=== PATIENT | male | born 1940 | race Caucasian/White ===

== ENCOUNTER 2017-10-27 16:20 | Emergency (ER) | payer OTHER ==
[~2017-10-27] VITALS: Ht 177.8 cm; Wt 123.4 kg
[~2017-10-27 16:20] MED LIST: ASPIRIN EC81 MG PO; B-121000 MCG PO; CALCIUM600 MG PO; CENTRUM; CENTRUM SILVER PO; GLYBURIDE-METF1 EAC1 PO; LANTUS100 UNIT/1 SC; LISINOPRIL10 MG PO; SIMVASTATIN40 MG PO; VITAMIN D PO; ZINC50 M1 PO
[2017-10-27] MEDS ORDERED: SODIUM CHLORIDE 0.9% 1000ML 1,000 ML IV STA (16:22)
[2017-10-27] MEDS ORDERED: ONDANSETRON HCL INJ 2 MG/ML VIAL IV STA (16:22)
[2017-10-27 17:12] LABS: BILIRUBIN,URINE NEGATIVE (NEGATIVE); COLOR,URINE YELLOW (YELLOW); KETONES,URINE 3+ (NEGATIVE); LEUKOCYTE ESTERASE ,URINE TRACE (NEGATIVE); NITRITE,URINE NEGATIVE (NEGATIVE); URINE UROBILINOGEN 0.2 mg/dL (0.2 - 1)
[2017-10-27 17:16] LABS: CLARITY,URINE SL CLOUDY (CLEAR); PROTEIN,URINE DIPSTICK 1+ (NEGATIVE)
[2017-10-27] MEDS ORDERED: DIATRIZOATE MEGL/DIATRIZOA SOD 30 ML BTL PO ONE (17:20)
[2017-10-27 17:34] LABS: BACTERIA,URINE MODERATE /HPF; EPITHELIAL CELLS,URINE RARE /LPF
[2017-10-27] MEDS ORDERED: SODIUM CHLORIDE 0.9% 1000ML 1,000 ML ONE (19:26)
[2017-10-27 20:26] LABS: BASOPHILS % 0.2 % (0.0-1.0); HEMATOCRIT 44.8 % (38.2-49.6); HEMOGLOBIN 13.7 g/dL (14.0-18.0); LYMPHOCYTES # (AUTO) 0.4 (1.0-3.2); MEAN CORPUSCULAR HEMOGLOBIN 25.4 pg (28-32); MEAN CORPUSCULAR HGB CONC 30.6 g/dL (31-35); MEAN CORPUSCULAR VOLUME 83.1 fL (81-99); MONOCYTES # (AUTO) 0.5 (0.2-0.8); MONOCYTES % 4.4 % (4.4-11.3); NEUTROPHILS # (AUTO) 10.7 (2.1-6.9); PLATELET COUNT 178 x10e3/uL (140-360); RED BLOOD COUNT 5.39 x10e6/uL (4.3-5.7); RED CELL DISTRIBUTION WIDTH 16.2 % (11.7-14.4)
[2017-10-27 20:35] LABS: INR 1.09; PROTHROMBIN TIME 13.3 seconds (11.9-14.5)
[2017-10-27 20:36] LABS: PARTIAL THROMBOPLASTIN TIME 26.4 seconds (23.8-35.5)
[2017-10-27 20:47] LABS: B-TYPE NATRIURETIC PEPTIDE2 27.4 pg/mL (0-100)
[2017-10-27 20:48] LABS: ALBUMIN/GLOBULIN RATIO 1.2 (0.8-2.0); ANION GAP 18.6 mmol/L (8-16); CREATININE, SERUM 1.31 mg/dL (0.72-1.25); MAGNESIUM 1.7 MG/DL (1.3-2.1); POTASSIUM 4.6 mmol/L (3.5-5.1)
[2017-10-27 20:55] LABS: CREATINE KINASE MB 2.2 ng/mL (0-5.0)
--- NOTE | 2017-10-27 21:48 | Diagnostic Imaging Report ---
EXAM: CT ABDOMEN/PELVIS W DATE: 10/27/2017 5:00 PM INDICATION: Nausea, small bowel obstruction COMPARISON: None TECHNIQUE: The abdomen and pelvis were scanned using a multidetector helical scanner. Coronal and sagittal reformations were obtained. Routine protocol performed. IV Contrast: 100 ml Isovue 370 FINDINGS: LOWER THORAX: Groundglass, linear and nodular right middle lobe opacity, nonspecific but may be postinfectious. LIVER/BILIARY: No masses. No ductal dilatation. GALLBLADDER: Cholelithiasis. SPLEEN: Incidental splenic calcified granulomas. PANCREAS: Several pancreatic calcifications which can be seen with chronic pancreatitis. Otherwise unremarkable. ADRENALS: Low-density 1.9 cm left adrenal nodule most compatible with an adenoma (HU6). KIDNEYS: Multiple bilateral renal cysts, the largest 9.5 cm of the right inferior pole, and 10.4 cm of the left interpolar region GI TRACT: No wall thickening or evidence of obstruction. VESSELS: Left external iliac vein is diminutive with calcification of the visualized OIL DISPENSER/SFA, likely related to prior/chronic thrombosis. PERITONEUM/RETROPERITONEUM: No free air or fluid LYMPH NODES: No lymphadenopathy REPRODUCTIVE ORGANS/BLADDER: Prostatomegaly. Bladder diverticula most subtle curvilinear enhancement or high density along a right posterior diverticula on image 79. SOFT TISSUES: Unremarkable BONES: Multilevel degenerative changes IMPRESSION: 1. No acute abnormality. Specifically no evidence of small bowel obstruction. 2. 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 Subtle peripheral high density or enhancement along a right posterior diverticulum lateral to the UVJ; correlate with direct visualization and urine cytology to exclude neoplasm. Signed by: Dr Tali Alvarez MD on 10/27/2017 9:44 PM
--- NOTE | 2017-10-27 21:49 | Diagnostic Imaging Report ---
CHEST SINGLE (PORTABLE), 10/27/2017 4:22 PM Technique: CHEST SINGLE (PORTABLE) Comparison: None available. Clinical history: Sinus congestion, vomiting Findings: See Impression Impression: 1. Normal cardiac silhouette for technique. Prominent bilateral nohemy which could reflect pulmonary vasculature or adenopathy. Recommend upright PA and lateral to better evaluate. 2. No consolidation or edema. Right middle lobe opacity better seen on CT. Signed by: Dr Tali Alvarez MD on 10/27/2017 9:45 PM
[2017-10-27] MEDS ORDERED: SODIUM CHLORIDE 0.9% 50ML 50 ML ONE (22:24)
[2017-10-27] MEDS ORDERED: IOPAMIDOL 370 MG/ML 200 ML INFUS..BTL INJ ONE (22:25)
[2017-10-27] MEDS ORDERED: CEFTRIAXONE SOD 1 GM VIAL IV ONE (22:30)
[2017-10-27 22:46] VITALS: BP 159/85
== END 2017-10-27 22:57 | disposition home or self-care (01) ==
LOC: ER 16:20
DX: N30.91 Cystitis, unspecified with hematuria (principal); N32.3 Diverticulum of bladder; R11.2 Nausea with vomiting, unspecified; R10.84 Generalized abdominal pain
CPT/HCPCS: 36415; 71045; 74177; 80053; 81001; 82550; 82553; 82948; 83605; 83690; 83735; 83880; 84484; 85025; 85610; 85730; 87086; 87400; 93005; 99284; J0696; J7030; Q9967

== ENCOUNTER → 2017-12-10 | Day surgery (SDC) | payer OTHER ==
[2017-12-08 10:21] LABS: BASOPHILS % 0.5 % (0.0-1.0); EOSINOPHILS # (AUTO) 0.3 (0.0-0.4); EOSINOPHILS % 3.3 % (0.0-6.0); HEMATOCRIT 42.6 % (38.2-49.6); LYMPHOCYTES # (AUTO) 1.5 (1.0-3.2); LYMPHOCYTES % 19.7 % (18.0-39.1); MEAN CORPUSCULAR HGB CONC 30.5 g/dL (31-35); MEAN CORPUSCULAR VOLUME 81.8 fL (81-99); MONOCYTES # (AUTO) 0.7 (0.2-0.8); MONOCYTES % 9.6 % (4.4-11.3); NEUTROPHILS % 66.6 % (38.7-80.0); PLATELET COUNT 191 x10e3/uL (140-360); RED BLOOD COUNT 5.21 x10e6/uL (4.3-5.7); RED CELL DISTRIBUTION WIDTH 15.9 % (11.7-14.4)
[2017-12-08 10:45] LABS: ANION GAP 14.3 mmol/L (8-16); CALCIUM 9.5 mg/dL (8.4-10.2); CREATININE, SERUM 1.3 mg/dL (0.72-1.25); POTASSIUM 5.3 mmol/L (3.5-5.1)
--- NOTE | 2017-12-08 10:50 | Diagnostic Imaging Report ---
PROCEDURE:CHEST 2 VIEWS TECHNIQUE:PA and lateral chest INDICATION:Preoperative evaluation COMPARISON:Patients [facility], DX, CHEST SINGLE (PORTABLE), 10/27/2017, 20:24. FINDINGS: Bilateral interstitial scar. No focal airspace disease. No pleural effusions. Normal cardiac mediastinal silhouette for technique and age. Intact skeleton. CONCLUSION: No acute abnormality. Dictated by: Delmer Hernandez M.D. on 12/08/2017 at 10:52 Electronically approved by: Delmer Hernandez M.D. on 12/08/2017 at 10:52
[~2017-12-10] MED LIST changes: +ACETAMINOPHEN 1000 MG/100 ML IV ONE; +BELLADONNA/OPIUM 60 MG SUPP PR ONE; +CEFTRIAXONE SOD 1 GM VIAL ONE; +DEXAMETHASONE SOD PHOS INJ 4 MG/ML VIAL ONE; +IOPAMIDOL 610MG/1ML 300 MG/ML VIAL IV ONE; +IRON PO; +KETOROLAC TROMETHAMINE 30 MG/ML VIAL ONE; +LEVEMIR100 UNIT/1 SQ; +LISINOPRIL40 MG PO; +MULTIVITAMINS1 EAC7 PO; +ONDANSETRON HCL INJ 2 MG/ML VIAL ONE; +PROPOFOL IV EMULSION 10 MG/ML 20 ML VIAL ONE; +SEVOFLURANE INHAL SOLN 250 ML PEN BTL ONE
--- OUTSIDE RECORDS SUMMARY | 2017-12-10 05:28 | XMS REPORT ---
Author Author [facility] Address Unknown Phone Unavailable Care Team Providers Care Sales Engineer Name Role Phone BOUCHRA KUMARI Unavailable Unavailable CHARLEE KOO Unavailable Unavailable Problems This patient has no known problems. Allergies, Adverse Reactions, Alerts This patient has no known allergies or adverse reactions. Medications This patient has no known medications. Results Test Description Test Time Test Comments Text Results Atomic Results Result Comments CHEST 2 VIEWS [place] [address] Patient Name: ARTHUR BENZ MR #: [id number] : 1940 Age/Sex: 77/M Req #: [id number] [facility] Physician: Ordered by: BOUCHRA KUMARI MD Report #: [id number] Location: OR Room/Bed: Procedure: [id number] DX/CHEST 2 VIEWS Exam Date: 12/08/17 Exam Time: 1000 REPORT STATUS: Signed PROCEDURE: CHEST 2 VIEWS TECHNIQUE: PA and lateral chest INDICATION: Preoperative evaluation COMPARISON: [facility], , CHEST SINGLE (PORTABLE), 10/27/2017, 20:24. FINDINGS: Bilateral interstitial scar. No focal airspace disease. No pleural effusions. Normal cardiac mediastinal silhouette for technique and age. Intact skeleton. CONCLUSION: No acute abnormality. Dictated by: Jerrica Hernandez M.D. on 12/08/2017 at 10:52 Electronically approved by: Jerrica Hernandez M.D. on 12/08/2017 at 10:52 Dictated By: JERRICA HERNANDEZ MD 105 Transcribed By: AVRIL on 12/08/17 105 COPY TO: BOUCHRA KUMARI MD CT ABDOMEN/PELVIS W [place] [address] Patient Name: ARTHUR BENZ MR #: [id number] : 1940 Age/Sex: 77/M Req #: [id number] Adm Physician: Ordered by: ISHAAN MADSEN PIE MAKER MACHINE Report #: [id number] Location: ER Room/Bed: Procedure: [id number] CT/CT ABDOMEN/PELVIS W Exam Date: 10/27/17 Exam Time: 2049 REPORT STATUS: Signed EXAM: CT ABDOMEN/ PELVIS W DATE: 10/27/2017 5:00 PM INDICATION: Nausea, small bowel obstruction COMPARISON: None TECHNIQUE: The abdomen and pelvis were scanned using a multidetector helical scanner. Coronal and sagittal reformations were obtained. Routine protocol performed. IV Contrast: 100 ml Isovue 370 FINDINGS: LOWER THORAX: Groundglass, linear and nodular right middle lobe opacity, nonspecific but may be postinfectious. LIVER/BILIARY : No masses. No ductal dilatation. GALLBLADDER: Cholelithiasis. SPLEEN : Incidental splenic calcified granulomas. PANCREAS: Several pancreatic calcifications which can be seen with chronic pancreatitis. Otherwise unremarkable. ADRENALS: Low-density 1.9 cm left adrenal nodule most compatible with an adenoma (HU6). KIDNEYS: Multiple bilateral renal cysts, the largest 9.5 cm of the right inferior pole, and 10.4 cm of the left interpolar region GI TRACT: No wall thickening or evidence of obstruction. VESSELS: Left external iliac vein is diminutive with calcification of the visualized MEDICAL TECHNICIAN ASSISTANT/SFA, likely related to prior/chronic thrombosis. PERITONEUM/RETROPERITONEUM: No free air or fluid LYMPH NODES: No lymphadenopathy REPRODUCTIVE ORGANS/BLADDER: Prostatomegaly. Bladder diverticula most subtle curvilinear enhancement or high density along a right posterior diverticula on image 79. SOFT TISSUES: Unremarkable BONES: Multilevel degenerative changes IMPRESSION: 1. No acute abnormality. Specifically no evidence of small bowel obstruction. 2. 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 Subtle peripheral high density or enhancement along a right posterior diverticulum lateral to the UVJ; correlate with direct visualization and urine cytology to exclude neoplasm. Signed by: Dr Bethany Alvarez MD on 10/27/2017 9:44 PM Dictated By: BETHANY ALVAREZ MD 43 Transcribed By: AMAN on 10/27/172143 COPY TO: ISHAAN MADSEN NP CHEST SINGLE (PORTABLE) [place] [address] Patient Name: ARTHUR BENZ MR #: [id number] : 1940 Age/Sex: 77/M Req #: [id number] Adm Physician: Ordered by: ISHAAN MADSEN NP Report #: [id number] Location: ER Room/Bed: Procedure: [id number] DX/CHEST SINGLE (PORTABLE) Exam Date: 10/27/17 Exam Time: 2019 REPORT STATUS: Signed CHEST SINGLE ( PORTABLE), 10/27/2017 4:22 PM Technique: CHEST SINGLE (PORTABLE) Comparison: None available. Clinical history: Sinus congestion, vomiting Findings: See Impression Impression: 1. Normal cardiac silhouette for technique. Prominent bilateral nohemy which could reflect pulmonary vasculature or adenopathy. Recommend upright PA and lateral to better evaluate. 2. No consolidation or edema. Right middle lobe opacity better seen on CT. Signed by: Dr Bethany Alvarez MD on 10/27/2017 9:45 PM Dictated By: BETHANY ALVAREZ MD 44 Transcribed By: AMAN on 10/27/172144 COPY TO: ISHAAN MADSEN NP
--- OUTSIDE RECORDS SUMMARY | 2017-12-10 05:28 | XMS REPORT | Continuity of Care Document ---
Author Author [facility] Organization [facility] Address [address] [place] [address] Phone Unavailable Care Team Providers Care Farrowing Worker Name Role Phone TOD LIMON MD PCP Insurance Providers Guarantor Rey Benz Address [address] [place] [address] Email Payer [facility] Policy Number [id number] Subscriber's Name Rey Benz Relationship 18 Self / Same As Patient Group Number [id number] Group Name [employer] - Medicare Advantage Divis Effective Date 17 Advance Directives Directive Response Recorded Date/Time Does the patient have an advance directive? No 03/11/13 10:57am If yes, is advance directive on file with [facility]? No 03/11/13 10:57am If not on file with [facility] will patient provide a copy? No 03/11/13 10:57am Do you have a Directive to Physician? No 10/27/17 5:25pm Do you have a Medical Power of Rn Training? No 10/27/17 5:25pm Do you have an out of hospital Do Not Resuscitate Order? No 10/27/17 5:25pm Do you have any special needs we should be aware of? NN 10/27/17 5:25pm Do you have a support person here with you today? Yes 10/27/17 5:25pm Did patient receive Notice of Privacy Practices? Yes 10/27/17 5:25pm Did patient receive patient rights and responsibilities? Yes 10/27/17 5:25pm Problems No problem information available. Medications Current Home Medications Medication Dose Units Route Directions Days Qty Instructions Start Date Aspirin (Aspirin Ec) 81 Mg Tablet.dr 81 Mg Oral Daily Calcium Carbonate (Calcium) 600 Mg Tablet 600 Mg Oral Daily Centrum Centrum Silver Oral Daily Cyanocobalamin (Vitamin B-12) (B-12) 1,000 Mcg Tablet.er 1,000 Oral Daily Glyburide/Metformin Hcl (Glyburide-Metformin 5-500 Mg) 1 Each Tablet Oral Twice A Day Insulin Glargine,Hum.rec.anlog (Lantus) 100 Unit/1 Ml Cartridge 76 Subcutaneously Daily Lisinopril 10 Mg Tablet 10 Mg Oral Daily Simvastatin 40 Mg Tablet 40 Mg Oral Daily Vitamin D 50,000 Mg Oral Weekly Zinc 50 Mg Tablet 50 Mg Oral Daily Social History Smoking Status Start Date Stop Date Never Smoker Hospital Discharge Instructions No hospital discharge instruction information available. Plan of Care Discharge Date 10/27/17 10:57pm Disposition HOME, SELF-CARE Condition at Discharge Stable Instructions/Education Provided Urinary Tract Infection - Men Vomiting - Adult Forms Provided Work/School Excuse Prescriptions See Medication Section Referrals TOD LIMON MD Order Date: Call for an appointment Address: [address] [place] [phone] Additional Instructions/Education TAKE MEDS DIRECTED INCREASE FLUID INTAKE FOLLOW UP WITH PCP RETURN TO THE ER NEEDED Functional Status No functional status information available. Allergies, Adverse Reactions, Alerts No known allergies. Immunizations No immunization information available. Vital Signs Acute Vital Signs Vital Response Date/Time Height 5 ft 10 in 10/27/2017 4:56pm Weight 272 lb 10/27/2017 4:56pm Body Mass Index 39.0 kg/m^2 10/27/2017 4:56pm Results Laboratory Results Test Name Result Units Flags Reference Collection Date/Time Result Date/ Time Comments White Blood Count 11.63 x10e3/uL H 4.8-10.8 10/27/2017 7:17pm 2017 8:27pm Red Blood Count 5.39 x10e6/uL 4.3-5.7 10/27/2017 7:10/27/2017 8: 27pm Hemoglobin 13.7 g/dL L 14.0-18.0 10/27/2017 7:10/27/2017 8:27pm Hematocrit 44.8 % 38.2-49.6 10/27/2017 7:10/27/2017 8:27pm Mean Corpuscular Volume 83.1 fL 81-99 10/27/2017 7:10/27/2017 8: 27pm Mean Corpuscular Hemoglobin 25.4 pg L 28-32 10/27/2017 7:2017 8:27pm Mean Corpuscular Hemoglobin Concent 30.6 g/dL L 31-35 10/27/2017 7:10/27/2017 8:27pm Red Cell Distribution Width 16.2 % H 11.7-14.4 10/27/2017 7:2017 8:27pm Platelet Count 178 x10e3/uL 140-360 10/27/2017 7:10/27/2017 8: 27pm Neutrophils (%) (Auto) 92.0 % H 38.7-80.0 10/27/2017 7:10/27/2017 8 :27pm Lymphocytes (%) (Auto) 3.0 % L 18.0-39.1 10/27/2017 7:10/27/2017 8: 27pm Monocytes (%) (Auto) 4.4 % 4.4-11.3 10/27/2017 7:10/27/2017 8: 27pm Eosinophils (%) (Auto) 0.0 % 0.0-6.0 10/27/2017 7:10/27/2017 8: 27pm Basophils (%) (Auto) 0.2 % 0.0-1.0 10/27/2017 7:10/27/2017 8:27pm IM GRANULOCYTES % 0.4 % 0.0-1.0 10/27/2017 7:10/27/2017 8:27pm Neutrophils # (Auto) 10.7 H 2.1-6.9 10/27/2017 7:10/27/2017 8: 27pm Lymphocytes # (Auto) 0.4 L 1.0-3.2 10/27/2017 7:17pm 10/27/2017 8: 27pm Monocytes # (Auto) 0.5 0.2-0.8 10/27/2017 7:17pm 10/27/2017 8:27pm Eosinophils # (Auto) 0.0 0.0-0.4 10/27/2017 7:17pm 10/27/2017 8:27pm Basophils # (Auto) 0.0 0.0-0.1 10/27/2017 7:17pm 10/27/2017 8:27pm Absolute Immature Granulocyte (auto 0.05 x10e3/uL 0-0.1 10/27/2017 7: 17pm 10/27/2017 8:27pm Prothrombin Time 13.3 seconds 11.9-14.5 10/27/2017 7:17pm 10/27/2017 8: 36pm Prothromb Time International Ratio 1.09 10/27/2017 7:17pm 2017 8:36pm Oral Anticoagulant Therapy INR Values: 1. Low Intensity Therapy 1.5 - 2.0 2. Moderate Intensity Therapy 2.0 - 3.0 3. High Intensity Therapy(1) 2.5 - 3.5 4. High Intensity Therapy(2) 3.0 - 4.0 5. Panic Value INR > 5.0 Activated Partial Thromboplast Time 26.4 seconds 23.8-35.5 10/27/2017 7: 17pm 10/27/2017 8:36pm Urine Color YELLOW YELLOW 10/27/2017 4:39pm 10/27/2017 5:16pm Urine Clarity SL CLOUDY H CLEAR 10/27/2017 4:39pm 10/27/2017 5:16pm Urine Specific [place] 1.020 1.010-1.025 10/27/2017 4:39pm 2017 5:16pm Urine pH 5 5 - 7 10/27/2017 4:39pm 10/27/2017 5:16pm Urine Leukocyte Esterase TRACE H NEGATIVE 10/27/2017 4:39pm 2017 5:16pm Urine Nitrite NEGATIVE NEGATIVE 10/27/2017 4:39pm 10/27/2017 5:16pm Urine Protein 1+ H NEGATIVE 10/27/2017 4:39pm 10/27/2017 5:16pm Urine Glucose (UA) 3+ H NEGATIVE 10/27/2017 4:39pm 10/27/2017 5:16pm Urine Ketones 3+ H NEGATIVE 10/27/2017 4:39pm 10/27/2017 5:16pm Urine Urobilinogen 0.2 mg/dL 0.2 - 1 10/27/2017 4:39pm 10/27/2017 5: 16pm Urine Bilirubin NEGATIVE NEGATIVE 10/27/2017 4:39pm 10/27/2017 5: 16pm Urine Blood 2+ H NEGATIVE 10/27/2017 4:39pm 10/27/2017 5:16pm Urine WBC 11-20 /HPF H 0-5 10/27/2017 4:39pm 10/27/2017 5:34pm Urine RBC 6-10 /HPF H 0-5 10/27/2017 4:39pm 10/27/2017 5:34pm Urine Bacteria MODERATE /HPF H NONE 10/27/2017 4:39pm 10/27/2017 5:34pm Urine Epithelial Cells RARE /LPF NONE 10/27/2017 4:39pm 10/27/2017 5: 34pm Sodium Level 134 mmol/L L 136-145 10/27/2017 7:51pm 10/27/2017 8:49pm Potassium Level 4.6 mmol/L 3.5-5.1 10/27/2017 7:51pm 10/27/2017 8:49pm Chloride Level 105 mmol/L 98-107 10/27/2017 7:51pm 10/27/2017 8:49pm Influenza Virus Types A,B Antigen NEGATIVE NEGATIVE 10/27/2017 5:11pm 10/27/2017 6:29pm Carbon Dioxide Level 15 mmol/L L 10/27/2017 7:51pm 10/27/2017 8: 49pm Anion Gap 18.6 mmol/L H 8-16 10/27/2017 7:51pm 10/27/2017 8:49pm Blood Urea Nitrogen 25 mg/dL 02-2510/27/2017 7:51pm 10/27/2017 8:49pm Creatinine 1.31 mg/dL H 0.72-1.25 10/27/2017 7:51pm 10/27/2017 8:49pm BUN/Creatinine Ratio 19 6-10/27/2017 7:51pm 10/27/2017 8:49pm Estimat Glomerular Filtration Rate 53 ML/MIN L 60- 10/27/2017 7:51pm 8:49pm Ranges were taken from the National Kidney Disease Education Program and the National Kidney Foundation literature. Reference ranges: 60 or greater: Normal 16-59 (for 3 consecutive months): Chronic kidney disease 15 or less: Kidney failure Glucose Level 224 mg/dL H 74-118 10/27/2017 7:51pm 10/27/2017 8:49pm Calcium Level 9.0 mg/dL 8.4-10.2 10/27/2017 7:51pm 10/27/2017 8:49pm Bedside Glucose 225 mg/dL H 70-120 10/27/2017 5:08pm 10/27/2017 5:16pm Meter ID: [id number] Lactic Acid Level 10.9 MG/DL 4.5-19.8 10/27/2017 7:17pm 10/27/2017 8: 39pm Magnesium Level 1.7 MG/DL 1.3-2.1 10/27/2017 7:51pm 10/27/2017 8:49pm Total Bilirubin 0.9 mg/dL 0.2-1.2 10/27/2017 7:51pm 10/27/2017 8:49pm Aspartate Amino Transf (AST/SGOT) 19 IU/L 5-34 10/27/2017 7:51pm 2017 8:49pm Alanine Aminotransferase (ALT/SGPT) 16 IU/L 0-55 10/27/2017 7:51pm 8:49pm Total Protein 7.3 g/dL 6.5-8.1 10/27/2017 7:51pm 10/27/2017 8:49pm Albumin 4.0 g/dL 3.5-5.0 10/27/2017 7:51pm 10/27/2017 8:49pm Globulin 3.3 g/dL 2.3-3.5 10/27/2017 7:51pm 10/27/2017 8:49pm Albumin/Globulin Ratio 1.2 0.8-2.0 10/27/2017 7:51pm 10/27/2017 8: 49pm Alkaline Phosphatase 57 IU/L 40-150 10/27/2017 7:51pm 10/27/2017 8: 49pm B-Type Natriuretic Peptide 27.4 pg/mL 0-100 10/27/2017 7:17pm 2017 8:47pm Creatine Kinase 138 IU/L 30-200 10/27/2017 7:51pm 10/27/2017 8:49pm Creatine Kinase MB 2.20 ng/mL 0-5.0 10/27/2017 7:51pm 10/27/2017 8: 58pm Troponin I 0.005 ng/mL 0-0.300 10/27/2017 7:51pm 10/27/2017 8:58pm Lipase 18 U/L 8-78 10/27/2017 7:51pm 10/27/2017 8:49pm Procedures Procedure Status Date Provider(s) Computed tomography of abdomen and pelvis with contrast Active 10/27/17 ISHAAN MADSEN CUT OFF SAW OPERATOR P[employer]KS Encounters Encounter Location Arrival/Admit Date Discharge/Depart Date Attending Provider Departed Emergency Room [facility] 10/27/17 4:20pm 10:57pm CHARLEE KOO MD
--- NOTE | 2018-01-20 02:53 | Operative Report ---
DATE OF PROCEDURE: December 10, 2017 PREOPERATIVE DIAGNOSIS: Urinary tract infections. POSTOPERATIVE DIAGNOSES: 1. Urinary tract infections. 2. Bladder tumor at the trigone consistent with the appearance of bladder cancer. OPERATIONS PERFORMED: 1. Cystourethroscopy with bilateral ureteral catheterization and retrograde ureteropyelography (separate procedure performed for the urinary tract infections). 2. Interpretation of retrograde ureteropyelography. 3. Supervision of fluoroscopy, no radiologist present. 4. Cystourethroscopy with transurethral resection of bladder tumor (separate procedure performed for the tumor). ANESTHESIA: General. COMPLICATIONS: None. CLINICAL SUMMARY: Rey Hair is a 77-year-old man with recurrent urinary tract infections. He is brought for the above procedures. He is aware of the risks of bleeding, infection, injury to adjacent structures, need for additional procedures, and elected to proceed. OPERATIVE PROCEDURE IN DETAIL: Informed consent was verified. Rey Hair was properly identified, taken to the operating room, and placed on the cystoscopy table in supine position. Anesthesia was uneventfully begun. The patient was then carefully and gently repositioned in dorsal lithotomy position with all pressure points well padded. His genitalia were prepared and draped in usual sterile fashion. The 22.5-[place]izen [place] cystoscope sheath with the visual obturator in place was atraumatically inserted in patient's urethra. It was guided down the relatively unremarkable urethra, through the normal sphincteric region, into the prostate bed, which was significant for visually obstructing BPH with kissing lateral lobes. Panendoscopy of urinary bladder revealed grade 4 trabeculations with multiple diverticula. There was a lesion noted at the mid trigone, it appeared to be papillary. There were no other noted lesions, and ureteral orifices were identified. An 8-Citizen [place] catheter was used to cannulate each ureter, and retrograde ureteral pyelograms were performed. Interpretation of retrograde ureteropyelography: Contrast was instilled in retrograde fashion bilaterally. There were no tumors, no stones, and no diverticula. Unobstructed drainage was observed bilaterally fluoroscopically. Cold cup biopsy forceps was then utilized to resect the small bladder tumor from the middle of the trigone. We then utilized the Bugbee electrode to fulgurate its base. Excellent hemostasis was achieved. The patient's bladder was drained. The patient was uneventfully reversed from anesthesia and taken to recovery room in stable condition. There were no complications to the procedure. He tolerated the procedure well. Explicit postop instructions were given. Will follow the patient up in the office. At followup appointments, we will perform uroflowmetry and bladder ultrasonography. Job#: [id number] cc:DELMA LIMON MD
== END | disposition home or self-care (01) ==
LOC: OR 05:26
PROVIDERS: ATTEND Urology
DX: N30.30 Trigonitis without hematuria (principal); N40.1 Benign prostatic hyperplasia with lower urinary tract symptoms; R35.1 Nocturia; N32.3 Diverticulum of bladder; N32.89 Other specified disorders of bladder; N28.1 Cyst of kidney, acquired; N39.41 Urge incontinence; R80.9 Proteinuria, unspecified; N50.0 Atrophy of testis; D44.10 Neoplasm of uncertain behavior of unspecified adrenal gland; I10 Essential (primary) hypertension; E11.9 Type 2 diabetes mellitus without complications; Z01.810 Encounter for preprocedural cardiovascular examination; Z01.812 Encounter for preprocedural laboratory examination; Z01.818 Encounter for other preprocedural examination; Z79.82 Long term (current) use of aspirin; Z79.4 Long term (current) use of insulin; Z68.41 Body mass index [BMI] 40.0-44.9, adult
CPT/HCPCS: 36415 ×2; 52005; 52234; 71046; 74420; 80048; 82948; 85025; 88305; 93005; C1758; J0696; J1100; J1885; J2405; Q9967

== ENCOUNTER 2019-03-09 09:11 | Inpatient (IN) | payer MEDICARE, OTHER ==
[2019-03-07 09:29] LABS: BASOPHILS % 0.4 % (0.0-1.0); EOSINOPHILS # (AUTO) 0.3 (0.0-0.4); EOSINOPHILS % 4.7 % (0.0-6.0); HEMATOCRIT 39.7 % (38.2-49.6); HEMOGLOBIN 12.2 g/dL (14.0-18.0); LYMPHOCYTES # (AUTO) 1.4 (1.0-3.2); LYMPHOCYTES % 20.8 % (18.0-39.1); MEAN CORPUSCULAR HEMOGLOBIN 25.8 pg (28-32); MEAN CORPUSCULAR HGB CONC 30.7 g/dL (31-35); MEAN CORPUSCULAR VOLUME 84.1 fL (81-99); MONOCYTES # (AUTO) 0.6 (0.2-0.8); MONOCYTES % 8.2 % (4.4-11.3); NEUTROPHILS # (AUTO) 4.5 (2.1-6.9); NEUTROPHILS % 65.8 % (38.7-80.0); PLATELET COUNT 167 x10e3/uL (140-360); RED BLOOD COUNT 4.72 x10e6/uL (4.3-5.7); RED CELL DISTRIBUTION WIDTH 16.4 % (11.7-14.4)
[2019-03-07 09:49] LABS: ANION GAP 15.2 mmol/L (8-16); BLOOD UREA NITROGEN 15 mg/dL (7-26); BUN/CREATININE RATIO 16 (6-25); CALCIUM 9.1 mg/dL (8.4-10.2); CARBON DIOXIDE 22 mmol/L (22-29); CHLORIDE 108 mmol/L (98-107); CREATININE, SERUM 0.95 mg/dL (0.72-1.25); EST GLOMERULAR FILTRATION RATE > 60 ML/MIN (60-); GLUCOSE 104 mg/dL (74-118); POTASSIUM 4.2 mmol/L (3.5-5.1); SODIUM 141 mmol/L (136-145)
--- NOTE | 2019-03-07 10:03 | Diagnostic Imaging Report ---
EXAMINATION: CHEST 2 VIEWS INDICATION: Pre-operative COMPARISON: Chest radiograph of 10/27/2017 FINDINGS: LINES/TUBES:None LUNGS:The lungs are well-inflated. No focal consolidation or pulmonary edema. PLEURA:No pleural effusion or pneumothorax. MEDIASTINUM:The cardiomediastinal silhouette appears normal in size and shape. BONES/SOFT TISSUES:No acute osseous injury. ABDOMEN:No free air under the diaphragm. IMPRESSION: No focal pneumonia or pulmonary edema. Signed by: Lowell Way MD on 03/07/2019 10:00 AM
[~2019-03-09] VITALS: Ht 177.8 cm; Wt 128.4 kg
[~2019-03-09 09:11] MED LIST changes: -ACETAMINOPHEN 1000 MG/100 ML IV ONE; +AMLODIPINE BESY10 MG PO; -BELLADONNA/OPIUM 60 MG SUPP PR ONE; +CARDIAMIN MULT1 EACH PO; -CEFTRIAXONE SOD 1 GM VIAL ONE; +CRESTOR10 MG PO; -DEXAMETHASONE SOD PHOS INJ 4 MG/ML VIAL ONE; +FINASTERIDE5 MG PO; +FLOMAX0.4 MG PO; -IOPAMIDOL 610MG/1ML 300 MG/ML VIAL IV ONE; -KETOROLAC TROMETHAMINE 30 MG/ML VIAL ONE; +LOSARTAN POTAS100 MG PO; -ONDANSETRON HCL INJ 2 MG/ML VIAL ONE; -PROPOFOL IV EMULSION 10 MG/ML 20 ML VIAL ONE; -SEVOFLURANE INHAL SOLN 250 ML PEN BTL ONE; +basaglar INJ; +zinc PO
--- OUTSIDE RECORDS SUMMARY | 2019-03-09 09:22 | XMS REPORT | Clinical Summary ---
Author Author [facility] Organization [facility] Address Unknown Phone Unavailable Care Team Providers Care Administrative Resources Associate Name Role Phone Joel Mancera PCP Allergies No Known Allergies Medications End Date Status Medication Sig Dispensed Refills Start Date Active tamsulosin (FLOMAX) 0.4 0 mg capsule 8 Active finasteride (PROSCAR) 5 0 mg tablet 8 Active lancets misc 0 Active aspirin (ECOTRIN) 81 MG Take 81 mg by 0 enteric coated tablet mouth. 1 tablet po QOD Active zinc acetate 50 mg (zinc) Take 50 mg by 0 capsule mouth daily. Active cyanocobalamin (VITAMIN Take 1,000 0 B-12) 1000 MCG tablet mcg by mouth daily. Active mv-min/FA/D3/om-3/dha/epa Take by mouth 0 /fish (CARDIAMIN ORAL) daily. Active amLODIPine (NORVASC) 10 Take 10 mg by 0 mg tablet mouth daily. Active BASAGLAR KWIKPEN U-100 75 units SC 25 pen 1 INSULIN 100 unit/mL (3 daily 9 mL) injection (pen) Active pen needle, diabetic 30 Use as 100 each 2 gauge x 1/3" needle directed SQ 9 daily Active glipizide-metformin Take 2 360 tablet 1 (METAGLIP) 5-500 mg per tablets by 9 tablet mouth 2 (two) times a day before meals. Active losartan (COZAAR) 100 MG TAKE 1 90 tablet 1 tablet TABLET(100 9 MG) BY MOUTH DAILY 02/08/2020 Active rosuvastatin (CRESTOR) 20 Take 1 tablet 90 tablet 1 MG tablet (20 mg total) 9 by mouth daily. 05/11/2018 Discontinued BASAGLAR KWIKPEN U-100 0 INSULIN 100 unit/mL (3 8 mL) injection (pen) 05/11/2018 Discontinued glipizide-metformin 0 (METAGLIP) 5-500 mg per 8 tablet 05/11/2018 Discontinued lisinopril 0 (PRINIVIL,ZESTRIL) 20 mg 8 tablet 05/11/2018 Discontinued simvastatin (ZOCOR) 40 MG 0 tablet 8 08/05/2018 Discontinued simvastatin (ZOCOR) 40 MG Take 1 tablet 90 tablet 0 tablet (40 mg total) 8 by mouth nightly. 05/19/2018 Discontinued lisinopril Take 1 tablet 90 tablet 0 (PRINIVIL,ZESTRIL) 20 mg (20 mg total) 8 tablet by mouth daily. 11/15/2018 Discontinued glipizide-metformin Take 2 360 tablet 1 (METAGLIP) 5-500 mg per tablets by 8 tablet mouth 2 (two) times a day before meals. 11/15/2018 Discontinued BASAGLAR KWIKPEN U-100 75 units SC 25 pen 1 INSULIN 100 unit/mL (3 daily 8 mL) injection (pen) 08/05/2018 Discontinued terbinafine HCl (LamiSIL) Take 1 tablet 90 tablet 0 250 mg tablet (250 mg 8 total) by mouth daily for 90 days. 05/19/2018 Discontinued sulfamethoxazole-trimetho Take 1 tablet 20 tablet 0 prim (BACTRIM DS) 800-160 by mouth 2 8 mg per tablet (two) times a day for 10 days. 06/11/2018 Discontinued losartan (COZAAR) 100 MG Take 1 tablet 30 tablet 0 tablet (100 mg 8 total) by mouth daily. 05/29/2018 sulfamethoxazole-trimetho Take 1 tablet 20 tablet 0 prim (BACTRIM DS) 800-160 by mouth 2 8 mg per tablet (two) times a day for 10 days. 11/15/2018 Discontinued pen needle, diabetic 30 Use as 100 each 2 gauge x 1/3" needle directed SQ 8 daily 06/05/2018 clindamycin (CLEOCIN HCL) Take 1 40 capsule 0 300 MG capsule capsule (300 8 mg total) by mouth 4 (four) times a day for 10 days. 07/15/2018 Discontinued losartan (COZAAR) 100 MG TAKE 1 30 tablet 0 tablet TABLET(100 8 MG) BY MOUTH DAILY 07/15/2018 Discontinued amLODIPine (NORVASC) 5 mg Take 1 tablet 30 tablet 0 tablet (5 mg total) 8 by mouth daily. 11/15/2018 Discontinued amLODIPine (NORVASC) 10 Take 1 tablet 90 tablet 1 mg tablet (10 mg total) 8 by mouth daily. 11/15/2018 Discontinued losartan (COZAAR) 100 MG TAKE 1 90 tablet 1 tablet TABLET(100 8 MG) BY MOUTH DAILY 02/08/2019 Discontinued rosuvastatin (CRESTOR) 20 Take 1 tablet 90 tablet 1 MG tablet (20 mg total) 9 by mouth daily. 02/07/2019 Discontinued BASAGLKY MONSALVEPEN U-100 75 units SC 25 pen 1 INSULIN 100 unit/mL (3 daily 9 mL) injection (pen) 02/07/2019 Discontinued pen needle, diabetic 30 Use as 100 each 2 gauge x 1/3" needle directed SQ 9 daily 02/07/2019 Discontinued glipizide-metformin Take 2 360 tablet 1 (METAGLIP) 5-500 mg per tablets by 9 tablet mouth 2 (two) times a day before meals. 02/07/2019 Discontinued losartan (COZAAR) 100 MG TAKE 1 90 tablet 1 tablet TABLET(100 9 MG) BY MOUTH DAILY 01/04/2019 Discontinued amLODIPine (NORVASC) 5 mg Take 1 tablet 90 tablet 1 tablet (5 mg total) 9 by mouth daily for 180 days. Active Problems Problem Noted Date Cough in adult 01/04/2019 Seasonal allergic rhinitis 01/04/2019 Arthritis of both knees 11/15/2018 Essential hypertension 11/15/2018 Type 2 diabetes mellitus with microalbuminuria, with long-term current use 05/19/2018 of insulin Mixed hyperlipidemia 05/19/2018 Onychomycosis of toenail 05/19/2018 Benign prostatic hyperplasia with lower urinary tract symptoms 05/19/2018 Bladder tumor 05/19/2018 BMI 40.0-44.9, adult 05/19/2018 Edema of both lower extremities 05/19/2018 Chronic pain of both knees 05/19/2018 Encounters Care Team Description Date Type Specialty Ben Bella MD 03/07/2019 Clinical Orthopedic Surgery Support Deonte Rolon MD Primary osteoarthritis of both knees (Primary Dx) 02/14/2019 Transcribe Physical Therapy Orders Joel Mancera, 02/08/2019 Orders Only Family Alex Gr MD 02/07/2019 Refill Family Medicine Joel Mancera, 02/07/2019 Refill Family Medicine Evelyn Dale 02/02/2019 Telephone Orthopedic Surgery Deonte Rolon MD Bilateral primary osteoarthritis of knee (Primary Dx) 01/17/2019 Transcribe Physical Therapy Orders Joel Mancera, Type 2 diabetes mellitus with microalbuminuria, with long- term current use of insulin (HCC) (Primary Dx); Essential hypertension; Edema of both lower extremities; Cough in adult; Seasonal allergic rhinitis, unspecified trigger 01/04/2019 Office Visit Family Medicine Ben Bella MD Primary osteoarthritis of both knees (Primary Dx) 12/31/2018 Office Visit Orthopedic Surgery Joel Mancera DO Rios, Javier Antonio, MD Primary osteoarthritis of right knee (Primary Dx); Arthritis of both knees; Primary osteoarthritis of left knee; Chronic pain of right knee; Chronic pain of left knee 12/06/2018 Office Visit Sports Medicine Leanne Lopez LVN 11/17/2018 Telephone Family Medicine Joel Mancera DO Type 2 diabetes mellitus with microalbuminuria, with long- term current use of insulin (HCC) (Primary Dx); Mixed hyperlipidemia; Edema of both lower extremities; Essential hypertension; Benign prostatic hyperplasia with lower urinary tract symptoms, symptom details unspecified; Arthritis of both knees 11/15/2018 Office Visit Family Joel Forte DO Arthritis of both knees 11/15/2018 Hospital Radiology Encounter Joel Mancera DO Arthritis of both knees 11/15/2018 Hospital Radiology Encounter Sheree Arias 08/06/2018 Telephone Family Medicine Alex Anglin MD Essential hypertension (Primary Dx); Uncontrolled type 2 diabetes mellitus with hyperglycemia (HCC); Benign prostatic hyperplasia with lower urinary tract symptoms, symptom details unspecified; Bladder tumor; Edema of both lower extremities; Onychomycosis of toenail; BMI 40.0-44.9, adult (HCC); Chronic pain of both knees; Mixed hyperlipidemia 08/05/2018 Office Visit [facility] Alex Anglin MD 07/15/2018 Orders Only [facility] Medicine Naima Swift MA 07/15/2018 Telephone [facility] Alex Anglin MD Essential hypertension (Primary Dx); Type 2 diabetes mellitus with microalbuminuria, with long-term current use of insulin ([facility]); BMI 40.0-44.9, adult (HCC); Chronic pain of both knees 07/06/2018 Office Visit [facility] Shereen Covington MA 07/05/2018 Telephone [facility] Alex Gr MD 06/11/2018 Orders Only [facility] Alex Gr MD 06/11/2018 Refill [facility] Alex Gr MD 06/10/2018 Refill [facility] Medicine Shereen Cruz MA 05/28/2018 Telephone [facility] Alex Gr MD 05/26/2018 Orders Only [facility] Alex Gr MD 05/26/2018 Telephone [facility] Alex Gr MD Abscess of lower back (Primary Dx); Essential hypertension; Type 2 diabetes mellitus with microalbuminuria, with long-term current use of insulin ([facility]) 05/19/2018 Office Visit [facility] Shereen Covington MA 05/17/2018 Telephone [facility] Alex Anglin MD Type 2 diabetes mellitus without complication, with long- term current use of insulin ([facility]) (Primary Dx); Mixed hyperlipidemia; Onychomycosis of toenail; Benign prostatic hyperplasia with lower urinary tract symptoms, symptom details unspecified; Bladder tumor; BMI 40.0-44.9, adult (HCC); Edema of both lower extremities; Chronic pain of both knees; Flu vaccine need 05/11/2018 Office Visit Family Medicine after 03/08/2018 Immunizations Name Dates Previously Given Next Due FLUZONE HIGH-DOSE PF 05/11/2018 Family History Medical History Relation Name Comments Diabetes Father Heart attack Father Alzheimer's disease Mother Breast cancer Sister Cancer Sister Relation Name Status Comments Father (Age 79) Mother lewy body dementia (Age 93) Sister Social History Date Tobacco Use Types Packs/Day Years Used Never Smoker Smokeless Tobacco: Never Used Comments: hx cigars soccially Alcohol Use Drinks/Week oz/Week Comments No Social Isolation Answer Date Recorded In a typical week, how many times do you talk on More than three times a week 11/15/2018 the phone with family, friends, or neighbors? How often do you get together with friends or More than three times a week 11/15/2018 relatives? How often do you attend temple or hindu Never 11/15/2018 services? Do you belong to any clubs or organizations such Yes 11/15/2018 as temple groups, unions, fraternal or athletic groups, or school groups? How often do you attend meetings of the clubs or Never 11/15/2018 organizations you belong to? Are you now , , , , 11/15/2018 never or living with a partner? Stress Answer Date Recorded Do you feel stress - tense, restless, nervous, or Not at all 11/15/2018 anxious, or unable to sleep at night because your mind is troubled all the time - these days? Education Answer Date Recorded What is the highest level of school you have High school graduate 11/15/2018 completed or the highest degree you have received? Financial Resource Strain Answer Date Recorded How hard is it for you to pay for the very basics Not hard at all 11/15/2018 like food, housing, medical care, and heating? Intimate Partner Violence Answer Date Recorded Within the last year, have you been afraid of your No 11/15/2018 partner or ex-partner? Within the last year, have you been humiliated or No 11/15/2018 emotionally abused in other ways by your partner or ex-partner? Within the last year, have you been kicked, hit, No 11/15/2018 slapped, or otherwise physically hurt by your partner or ex-partner? Within the last year, have you been raped or No 11/15/2018 forced to have any kind of sexual activity by your partner or ex-partner? Food Insecurity Answer Date Recorded Within the past 12 months, you worried that your Never true 11/15/2018 food would run out before you got money to buy more. Within the past 12 months, the food you bought Never true 11/15/2018 just didn't last and you didn't have money to get more. Transportation Needs Answer Date Recorded In the past 12 months, has lack of transportation No 11/15/2018 kept you from medical appointments or from getting medications? In the past 12 months, has lack of transportation No 11/15/2018 kept you from meetings, work, or getting things needed for daily living? Sex Assigned at Date Recorded Not on file Industry Job Start Date Occupation Not on file Not on file Not on file Travel End Travel History Travel Start No recent travel history available. Last Filed Vital Signs Time Taken Vital Sign Reading 03/07/2019 11:22 AM CDT Blood Pressure 167/82 03/07/2019 11:22 AM CDT Pulse 81 01/04/2019 9:02 AM CDT Temperature 36.5 C (97.7 F) 08/05/2018 8:[address] TECHNICIAN Respiratory Rate 50 01/04/2019 9:02 AM CDT Oxygen Saturation 98% - Inhaled Oxygen - Concentration 03/07/2019 11:22 AM CDT Weight 129 kg (284 lb) 03/07/2019 11:22 AM CDT Height 177.8 cm (5' 10") 03/07/2019 11:22 AM CDT Body Mass Index 40.75 Plan of Treatment Care Team Description Date Type Specialty Ben Bella MD 2019 [facility] [address] [place], [place] [id number] 03/23/2019 Clinical Orthopedic Surgery Support Health Maintenance Due Date Last Done Comments SHINGLES VACCINES (#1) 1991 65+ PNEUMOCOCCAL VACCINE 2006 (1 of 2 - PCV13) INFLUENZA VACCINE 03/03/2019 05/11/2018 URINE MICROALBUMIN 11/16/2019 11/15/2018, 05/11/2018 DIABETIC FOOT EXAM 01/05/2020 01/04/2019, 01/04/2019, 01/04/2019 DIABETIC RETINAL EYE EXAM 05/18/2020 05/18/2018 Procedures Comments Procedure Name Priority Date/Time Associated Diagnosis XR KNEE 1 OR 2 VW Routine 11/15/2018 Arthritis of both knees BILATERAL 3:54 PM CDT URINALYSIS, MICRO UA Routine 11/15/2018 Type 2 diabetes mellitus SCREEN WITH MICROSCOPY 12:32 PM CDT with microalbuminuria, with long-term current use of insulin ([facility]) LIPID PANEL Routine 11/15/2018 Type 2 diabetes mellitus 12:32 PM CDT with microalbuminuria, with long-term current use of insulin ([facility]) COMPREHENSIVE METABOLIC Routine 11/15/2018 Type 2 diabetes mellitus PANEL 12:32 PM CDT with microalbuminuria, with long-term current use of insulin ([facility]) CBC WITH PLATELET AND Routine 11/15/2018 Essential hypertension DIFFERENTIAL 12:32 PM CDT HEMOGLOBIN A1C Routine 11/15/2018 Type 2 diabetes mellitus 12:32 PM CDT with microalbuminuria, with long-term current use of insulin ([facility]) MICROALBUMIN / CREATININE Routine 11/15/2018 Type 2 diabetes mellitus URINE RATIO 12:32 PM CDT with microalbuminuria, with long-term current use of insulin ([facility]) HEMOGLOBIN A1C Routine 08/05/2018 Uncontrolled type 2 8:[address]CHNICIAN diabetes mellitus with hyperglycemia ([facility]) ANAEROBIC AND AEROBIC Routine 05/19/2018 Abscess of lower back CULTURE 4:25 PM CDT FLUZONE HIGH-DOSE PF Routine 05/11/2018 Flu vaccine need (0.5ML SYRINGE) 11:59 AM CDT CREATINE KINASE, TOTAL Routine 05/11/2018 Mixed hyperlipidemia (CPK) 10:29 AM CDT HEMOGLOBIN A1C Routine 05/11/2018 Type 2 diabetes mellitus 10:29 AM CDT without complication, with long-term current use of insulin ([facility]) MICROALBUMIN / CREATININE Routine 05/11/2018 Type 2 diabetes mellitus URINE RATIO 10:29 AM CDT without complication, with long-term current use of insulin ([facility]) LIPID PANEL Routine 05/11/2018 Mixed hyperlipidemia 10:29 AM CDT COMPREHENSIVE METABOLIC Routine 05/11/2018 Type 2 diabetes mellitus PANEL 10:29 AM CDT without complication, with long-term current use of insulin (HCC) after 03/08/2018 Results * XR Knee 1 Or 2 Vw Bilateral (11/15/2018 3:54 PM CDT) Specimen Narrative Performed At EXAMINATION:XR KNEE 1 OR 2 VW BILATERAL [facility] CLINICAL HISTORY:M17.0 Bilateral primary osteoarthritis of knee, Knee [id number] of conservative tx COMPARISON:None. TECHNIQUE: AP and lateral radiographs of the lateral knees are reviewed. IMPRESSION: There is advanced bilateral medial tibiofemoral osteoarthritis with direct bone to bone contact and reactive articular surface sclerosis. Patellofemoral moderate osteophytosis is also present bilaterally with osteophyte formations. There is no fracture, subluxation, or aggressive bone lesion. [id number] Procedure Note Hm Interface, Radiology Results Incoming - 11/15/2018 4:06 PM CDT EXAMINATION: XR KNEE 1 OR 2 VW BILATERAL CLINICAL HISTORY: M17.0 Bilateral primary osteoarthritis of knee, Knee pain persistent 6wks of conservative tx COMPARISON: None. TECHNIQUE: AP and lateral radiographs of the lateral knees are reviewed. IMPRESSION: There is advanced bilateral medial tibiofemoral osteoarthritis with direct bone to bone contact and reactive articular surface sclerosis. Patellofemoral moderate osteophytosis is also present bilaterally with osteophyte formations. There is no fracture, subluxation, or aggressive bone lesion. [id number] Performing Organization Address City/State/Zipcode Phone Number [facility] [address] [place] [address] * Urinalysis, micro UA screen with microscopy (11/15/2018 12:32 PM CDT) WBC, UA 0-5 < OR=5 /HPF [facility] [place] RBC, UA 3-10 (A) < OR=2 /HPF [facility] [place] Squamous 0-5 < OR=5 /HPF [facility] epithelial [facility]AGNOSTICS cells, UA [place] Bacteria, UA FEW (A) NONE SEEN /HPF [facility] [place] Hyaline casts, NONE SEEN NONE SEEN /LPF [facility] UA [facility] [place] Specimen Urine Narrative Performed At FASTING:NO [facility] FASTING: NO Resulting Agency Comment Performing Organization Information: Site ID: [id number] Name: [facility] Address: [address] [place] [id number] Director: Latisha Toth Performing Organization Address [facility] Phone Number [facility] [place] [phone] * Microalbumin / creatinine urine ratio (11/15/2018 12:32 PM CDT) Only the most recent of 2 results within the time period is included. [facility] Creatinine, 118 20 - 320 mg/dL [facility] urine, random [facility] [place] Microalbumin, 13.5 See Note: mg/dL [facility] urine Comment: DI[facility]NOST[facility] Reference Range: [place] Reference Range Not established Microalbumin/cr 114 (H) <30 mcg/mg creat [facility] eatinine ratio Comment: DIAGNOSTICS The ADA defines abnormalities WHITE in albumin excretion as follows: Category Result (mcg/mg creatinine) Normal <30 Microalbuminuria 30-299 Clinical albuminuria > KP=506 The ADA recommends that at least two of three specimens collected within a 3-6 month period be abnormal before considering a patient to be within a diagnostic category. Specimen Urine Narrative Performed At FASTING:NO [facility] FASTING: NO Resulting Agency Comment Performing Organization Information: Site ID: [facility] Name: [facility] Address: [address] [place] [phone] Director: Latisha Toth Performing Organization Address [facility] Phone Number [facility] [address] [address] * CBC with platelet and differential (11/15/2018 12:32 PM CDT) [facility] WBC 6.8 3.8 - 10.8 [facility] Thousand/uL [email or web address] [place] RBC 4.91 4.20 - 5.80 [facility] Million/uL [facility] [place] HGB 12.6 (L) 13.2 - 17.1 g/dL [facility] [place] HCT 40.1 38.5 - 50.0 % [facility] [place] MCV 81.7 80.0 - 100.0 fL [facility] [place] MCH 25.7 (L) 27.0 - 33.0 pg [facility] [place] MCHC 31.4 (L) 32.0 - 36.0 g/dL [facility] [place] RDW 14.5 11.0 - 15.0 % [facility] [place] Platelet count 191 140 - 400 [facility] Thousand/uL [facility] [place] MPV 11.2 7.5 - 12.5 fL [facility] [place] Neutrophils, 4,916 1,500 - 7,800 [facility] absolute cells/uL [facility] [place] Lymphocytes, 1,163 850 - 3,900 cells/uL [facility] absolute [facility] [place] Monocytes, 551 200 - 950 cells/uL [facility] [place] Eosinophils, 150 15 - 500 cells/uL [facility] absolute [facility] [place] Basophils, 20 0 - 200 cells/uL [facility] absolute [facility] [place] Neutrophils 72.3 % [facility] [place] Lymphocytes 17.1 % [facility] [place] Monocytes 8.1 % [facility] [place] Eosinophils 2.2 % [facility] [place] Basophils + RC 0.3 % [facility] [place] Specimen Blood Narrative Performed At FASTING:NO [facility] FASTING: NO Resulting Agency Comment Performing Organization Information: Site ID: [id number] Name: [facility] Address: [address] [place] [phone] Director: Latisha Toth Performing Organization Address [facility] Phone Number [place] [address] * Hemoglobin A1c (11/15/2018 12:32 PM CDT) Only the most recent of 3 results within the time period is included. Hemoglobin A1C 7.4 (H) <5.7 % of total Hgb [facility] Comment: [facility] For someone without known [place] diabetes, a hemoglobin A1c value of 6.5% or greater indicates that they may have diabetes and this should be confirmed with a follow-up test. For someone with known diabetes, a value <7% indicates that their diabetes is well controlled and a value greater than or equal to 7% indicates suboptimal control. A1c targets should be individualized based on duration of diabetes, age, comorbid conditions, and other considerations. Currently, no consensus exists regarding use of hemoglobin A1c for diagnosis of diabetes for children. Specimen Blood Narrative Performed At FASTING:NO [facility] FASTING: NO Resulting Agency Comment Performing Organization Information: Site ID: [id number] Name: [facility] Address: [address] [place] [id number] Director: Latisha Toth Performing Organization Address [facility] Phone Number [facility] [address] [phone] * Lipid panel (11/15/2018 12:32 PM CDT) Only the most recent of 2 results within the time period is included. Cholesterol, 145 <200 mg/dL [facility] total [facility] HDL cholesterol 52 >40 mg/dL [facility] [place] Triglycerides 109 <150 mg/dL [facility] [place] LDL cholesterol 74 mg/dL (calc) [facility] calculated Comment: DI[facility] Reference range: <100 [place] Desirable range <100 mg/dL for primary prevention; <70 mg/dL for patients with CHD or diabetic patients with > or=2 CHD risk factors. LDL-C is now calculated using the Elijah calculation, which is a validated novel method providing better accuracy than the Friedewald equation in the estimation of LDL-C. Donald SS et al. FLO. 2013;310(19): 8003-4843 (http://education.[employer]/faq/HGT373) Cholesterol/HDL 2.8 <5.0 (calc) [facility] ratio [facility] [place] Non-HDL 93 <130 mg/dL (calc) [facility] cholesterol Comment: DIAGNOSTICS For patients with diabetes [place] plus 1 major ASCVD risk factor, treating to a non-HDL-C goal of <100 mg/dL (LDL-C of <70 mg/dL) is considered a therapeutic option. Specimen Blood Narrative Performed At FASTING:NO [facility] FASTING: NO Resulting Agency Comment Performing Organization Information: Site ID: [id number] Name: [facility] Address: [address] [place] [id number] Director: Latisha Toth Performing Organization Address City/State/Zipcode Phone [place] [employer] [place] [address] * Comprehensive metabolic panel (11/15/2018 12:32 PM CDT) Only the most recent of 2 results within the time period is included. Pathologist [facility] Glucose 162 (H) 65 - 139 mg/dL [facility] Comment: DI[facility]NOST[facility] Non-fasting [place] reference interval BUN, whole 18 7 - 25 mg/dL [facility] blood [facility] [place] Creatinine 0.96 0.70 - 1.18 mg/dL [facility] Comment: DI[facility] For patients >49 years of age, [place] the reference limit for Creatinine is approximately 13% higher for people identified as -[place]. EGFR Non-Afr. 76 > OR=60 [facility] [place] mL/min/1.73m2 [facility] EGFR 88 > OR=60 [facility] mL/min/1.73m2 [facility] BUN/creatinine NOT APPLICABLE 6 - 22 (calc) [facility] ratio [facility] [place] Sodium 140 135 - 146 mmol/L [facility] [place] Potassium 4.7 3.5 - 5.3 mmol/L [facility] [place] Chloride 109 98 - 110 mmol/L [facility] [place] CO2 24 20 - 32 mmol/L [facility] [place] Calcium 9.2 8.6 - 10.3 mg/dL [facility] Protein 6.8 6.1 - 8.1 g/dL [facility] [place] Albumin, S 4.3 3.6 - 5.1 g/dL [facility] [place] Globulin, total 2.5 1.9 - 3.7 g/dL [facility] (calc) [facility] [place] Albumin/globuli 1.7 1.0 - 2.5 (calc) [facility] n ratio [facility] Total bilirubin 0.6 0.2 - 1.2 mg/dL [facility] [place] Alkaline 56 40 - 115 U/L [facility] phosphatase [facility] AST 18 10 - 35 U/L [facility] [place] ALT 16 9 - 46 U/L [facility] [place] Specimen Blood Narrative Performed At FASTING:NO [facility] FASTING: NO Resulting Agency Comment Performing Organization Information: Site ID: RGA Name: [facility] Address: [address] [place] [phone] Director: Latisha Toth Performing Organization Address City/State/Zipcode Phone Number [facility] [place] [address] [place] [address] * Anaerobic and aerobic culture (05/19/2018 4:25 PM CDT) Aerobic and SEE NOTE [facility] anaerobic Comment: DIAGNOSTICS culture w/gram CULTURE, ANAEROBIC [place] stain BACTERIA W/GRAM STAIN MICRO NUMBER:[id number] TEST STATUS: FINAL SPECIMEN SOURCE: LOWER BACK SPECIMEN QUALITY:ADEQUATE GRAM STAIN:No epithelial cells seen No white blood cells seen Rare Gram positive cocci RESULT: No anaerobes isolated. Aerobic culture SEE NOTE (A) [facility] isolate Comment: DIAGNOSTICS CULTURE, AEROBIC BACTERIA [place] MICRO NUMBER:[id number] TEST STATUS: FINAL SPECIMEN SOURCE: LOWER BACK SPECIMEN QUALITY:ADEQUATE RESULT: Moderate growth of Methicillin resistant Staphylococcus aureus (MRSA) Negative for inducible clindamycin resistance. MRSA -------- -------- INT CARLOS CIPROFLOXACIN R >=8 CLINDAMYCIN S <=0.25 ERYTHROMYCIN R >=8 GENTAMICIN S <=0.5 LEVOFLOXACIN R 4 MOXIFLOXACIN R 2 OXACILLIN R NR 1 TETRACYCLINE S <=1 TRIMETHOPRIM/SULFA S <=10 VANCOMYCIN S 1 S=SusceptibleI=Intermediat eR=Resistant*=Not Tested NR=Not ReportedNN=See Therapy Comments THERAPY COMMENTS Note 1: Oxacillin-resistant staphylococci are resistant to all currently available beta-lactam antimicrobial agents including penicillins, beta lactam/beta- lactamase inhibitor combinations, and cephems with staphylococcal indications, including Cefazolin. Specimen Body fluid - Other- Detailed Description Required Resulting Agency Comment Performing Organization Information: Site ID: [id number] Name: [facility] Address: [address] [place] [phone] Director: Latisha Toth Performing Organization Address City/[facility] Phone Number [facility] [address] [address] * Fluzone High-Dose PF (0.5mL Syringe) (05/11/2018 11:59 AM CDT) * Creatine kinase, total (CPK) (05/11/2018 10:29 AM CDT) Creatine kinase 132 44 - 196 U/L [facility] [place] Specimen Narrative Performed At FASTING:YES [facility] FASTING: YES Resulting Agency Comment Performing Organization Information: Site ID: A Name: [facility] Address: [address] [place] [phone] Director: Latisha Toth Performing Organization Address City/[facility] Phone Number [facility] [address] [address] after 03/08/2018 Insurance Type Payer Benefit Subscriber ID Effective Phone Address Plan / Dates Group HMO TEXANPLUS TEXANPLUS xxxxxxxxx 2018-Jolanta bateman Advance Directives Patient has advance care planning documents on file. For more information, ash michaels contact: Jordan Ventura [address] [place] [address]
[2019-03-09] MEDS ORDERED: CEFTRIAXONE SOD 1 GM/NS 50 ML 50 ML IV ONE (09:25)
[2019-03-09] MEDS ORDERED: GENTAMICIN 80MG/NS 100 ML 200 ML IV ONE (09:25)
[2019-03-09] MEDS ORDERED: B&O 60MG R/S 60 MG SUPP PR ONE (12:23)
[2019-03-09] MEDS ORDERED: IOPAMIDOL 300MG/ML 50ML INFUS..BTL IV ONE (12:24)
[2019-03-09] MEDS ORDERED: ONDANSETRON HCL INJ 2MG/ML 2ML 2 MG/ML VIAL IV PRN (13:30)
[2019-03-09] MEDS ORDERED: B&O 60MG R/S 60 MG SUPP PR PRN (13:30)
[2019-03-09] MEDS ORDERED: DIPHENHYDRAMINE HCL 25 MG CAP PO PRN (13:30)
[2019-03-09] MEDS: CEFTRIAXONE SOD 1 GM/NS 50 ML 50 ML IV SCH (14:00)
[2019-03-09] MEDS ORDERED: MIDAZOLAM HCL 2 MG/2 ML VIAL ONE (14:10)
[2019-03-09] MEDS ORDERED: FENTANYL CITRATE/PF 100MCG/2 ML INJ ONE ×2 (14:10→14:59)
--- OUTSIDE RECORDS SUMMARY | 2019-03-09 15:20 | XMS REPORT | Clinical Summary ---
Author Author [facility] Organization [facility] [facility] Address Unknown Phone Unavailable Care Team Providers Care Banking Consultant Name Role Phone Joel Mancera PCP Allergies [...] both knees; Mixed hyperlipidemia 08/05/2018 Office Visit [facility] Alex Anglin MD 07/15/2018 Orders Only [facility] Naima Swift MA 07/15/2018 Telephone [facility] Alex Anglin MD Essential hypertension (Primary Dx); Type 2 diabetes mellitus with microalbuminuria, with long-term current use of insulin ([facility]); BMI 40.0-44.9, adult (HCC); Chronic pain of both knees 07/06/2018 Office Visit [facility] Shereen Covington MA 07/05/2018 Telephone [facility] Alex Gr MD 06/11/2018 Orders Only [facility] Alex Gr MD 06/11/2018 Refill [facility] Alex Gr MD 06/10/2018 Refill [facility] Shereen Cruz MA 05/28/2018 Telephone [facility] Alex Gr MD 05/26/2018 Orders Only [facility] Alex Gr MD 05/26/2018 Telephone [facility] Alex Gr MD Abscess of lower back (Primary Dx); Essential hypertension; Type 2 diabetes mellitus with microalbuminuria, with long-term current use of insulin ([facility]) 05/19/2018 Office Visit [facility] Shereen Covington MA 05/17/2018 Telephone [facility] Alex Anglin MD Type 2 diabetes mellitus without complication, with long- term current use of insulin ([facility]) (Primary Dx); Mixed hyperlipidemia; Onychomycosis of toenail; [...] 11/15/2018 relatives? How often do you attend mandaeism or latter-day Never 11/15/2018 services? 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 [employer] Respiratory Rate 50 01/04/2019 9:02 AM CDT Oxygen Saturation 98% - Inhaled Oxygen - Concentration 03/07/2019 11:22 AM CDT Weight 129 kg (284 lb) 03/07/2019 11:22 AM CDT Height 177.8 cm (5' 10") 03/07/2019 11:22 AM CDT Body Mass Index 40.75 Plan of Treatment Care Team Description Date Type Specialty Ben Bella MD [address] [facility] [address] [place], [place] [id number] 03/23/2019 Clinical Orthopedic Surgery Support Health Maintenance [...] microalbuminuria, with long-term current use of insulin ([facility]) LIPID PANEL Routine 11/15/2018 Type 2 diabetes mellitus 12:32 PM CDT with microalbuminuria, with long-term current use of insulin ([facility]) COMPREHENSIVE METABOLIC Routine 11/15/2018 Type 2 diabetes mellitus PANEL 12:32 PM CDT with microalbuminuria, with long-term current use of insulin ([facility]) CBC WITH PLATELET AND Routine 11/15/2018 Essential hypertension DIFFERENTIAL 12:32 PM CDT HEMOGLOBIN A1C Routine 11/15/2018 Type 2 diabetes mellitus 12:32 PM CDT with microalbuminuria, with long-term current use of insulin ([facility]) MICROALBUMIN / CREATININE Routine 11/15/2018 Type 2 diabetes mellitus URINE RATIO 12:32 PM CDT with microalbuminuria, with long-term current use of insulin ([facility]) HEMOGLOBIN A1C Routine 08/05/2018 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 ([facility]) ANAEROBIC AND AEROBIC Routine 05/19/2018 Abscess of lower back CULTURE 4:25 PM CDT FLUZONE HIGH-DOSE PF Routine 05/11/2018 Flu vaccine need (0.5ML SYRINGE) 11:59 AM CDT CREATINE KINASE, TOTAL Routine 05/11/2018 Mixed hyperlipidemia (CPK) 10:29 AM CDT HEMOGLOBIN A1C Routine 05/11/2018 Type 2 diabetes mellitus 10:29 AM CDT without complication, with long-term current use of insulin ([facility]) MICROALBUMIN / CREATININE Routine 05/11/2018 Type 2 diabetes mellitus URINE RATIO 10:29 AM CDT without complication, with long-term current use of insulin ([facility]) LIPID PANEL Routine 05/11/2018 Mixed hyperlipidemia 10:29 [...] HISTORY:M17.0 Bilateral primary osteoarthritis of knee, Knee [id number] of conservative tx COMPARISON:None. TECHNIQUE: AP and lateral radiographs of the lateral knees are reviewed. IMPRESSION: There is advanced bilateral medial tibiofemoral osteoarthritis with direct bone to bone contact and reactive articular surface sclerosis. Patellofemoral moderate osteophytosis is also present bilaterally with osteophyte formations. There is no fracture, subluxation, or aggressive bone lesion. [id number] Procedure Note Hm Interface, Radiology Results Incoming [...] no fracture, subluxation, or aggressive bone lesion. [id number] Performing Organization Address City/State/Zipcode Phone Number [facility] [address] [place] [address] * Urinalysis, micro UA screen with microscopy (11/15/2018 12:32 PM CDT) WBC, UA 0-5 < OR=5 /HPF [facility] [place] RBC, UA 3-10 (A) < OR=2 /HPF [facility] [place] Squamous 0-5 < OR=5 /HPF [facility] epithelial DIAGNOSTICS cells, UA [place] Bacteria, UA FEW (A) NONE SEEN /HPF [facility] [place] Hyaline casts, NONE SEEN NONE SEEN /LPF [facility] UA [facility] [place] Specimen Urine Narrative Performed At FASTING:NO [facility] FASTING: NO Resulting Agency Comment Performing Organization Information: Site ID: RGA Name: [facility] Address: [address] [place] [phone] Director: Latisha Toth Performing Organization Address [facility] Phone Number [facility] [place] [phone] * Microalbumin / creatinine urine ratio (11/15/2018 12:32 PM CDT) Only the most recent of 2 results within the time period is included. [facility] Creatinine, 118 20 - 320 mg/dL [facility] urine, random [facility] [place] Microalbumin, 13.5 See Note: mg/dL [facility] urine Comment: DIAGNOSTICS Reference Range: [place] Reference Range Not established Microalbumin/cr 114 (H) <30 mcg/mg creat [facility] eatinine ratio Comment: DIAGNOSTICS The ADA defines abnormalities WHITE in albumin excretion as follows: Category Result (mcg/mg creatinine) Normal <30 Microalbuminuria 30-299 Clinical albuminuria > QT=306 The ADA recommends that at least two of three specimens collected within a 3-6 month period be abnormal before considering a patient to be within a diagnostic category. Specimen Urine Narrative Performed At FASTING:NO [facility] FASTING: NO Resulting Agency Comment Performing Organization Information: Site ID: [facility] Name: [facility] Address: [address] [place] [phone] Director: Latisha Toth Performing Organization Address [facility] Phone Number [facility] [address] [address] * CBC with platelet and differential (11/15/2018 12:32 PM CDT) [facility] WBC 6.8 3.8 - 10.8 [facility] Thousand/uL [email or web address] [place] RBC 4.91 4.20 - 5.80 [facility] Million/uL [facility] [place] HGB 12.6 (L) 13.2 - 17.1 g/dL [facility] [place] HCT 40.1 38.5 - 50.0 % [facility] [place] MCV 81.7 80.0 - 100.0 fL [facility] [email or web address] [place] MCH 25.7 (L) 27.0 - 33.0 pg [facility] [place] MCHC 31.4 (L) 32.0 - 36.0 g/dL [facility] [place] RDW 14.5 11.0 - 15.0 % [facility] [place] Platelet count 191 140 - 400 [facility] Thousand/uL [facility] [place] MPV 11.2 7.5 - 12.5 fL [facility] [place] Neutrophils, 4,916 1,500 - 7,800 [facility] absolute cells/uL [facility] [place] Lymphocytes, 1,163 850 - 3,900 cells/uL [facility] absolute [facility] [place] Monocytes, 551 200 - 950 cells/uL [facility] absolute [facility] [place] Eosinophils, 150 15 - 500 cells/uL [facility] absolute [facility] [place] Basophils, 20 0 - 200 cells/uL [facility] absolute [facility] [place] Neutrophils 72.3 % [facility] [place] Lymphocytes 17.1 % [facility] [place] Monocytes 8.1 % [facility] [place] Eosinophils 2.2 % [facility] [place] Basophils + RC 0.3 % [facility] [place] Specimen Blood Narrative Performed At FASTING:NO [facility] FASTING: NO Resulting Agency Comment Performing Organization Information: Site ID: RGA Name: [facility] Address: [address] [place] [phone] Director: Latisha Toth Performing Organization Address [facility] [place] [place] [address] * Hemoglobin A1c (11/15/2018 12:32 PM CDT) Only the most recent of 3 results within the time period is included. Hemoglobin A1C 7.4 (H) <5.7 % of total Hgb [facility] Comment: DIAGNOSTICS For someone without known [place] diabetes, a hemoglobin A1c value of 6.5% [...] Performing Organization Information: Site ID: RGA Name: [facility] Address: [address] [place] [phone] Director: Latisha Toth Performing Organization Address [facility] Phone Number [facility] [address] [address] * Lipid panel (11/15/2018 12:32 PM CDT) Only the most recent of 2 results within the time period is included. Cholesterol, 145 <200 mg/dL [facility] total [facility] HDL cholesterol 52 >40 mg/dL [facility] [place] Triglycerides 109 <150 mg/dL [facility] [place] LDL cholesterol 74 mg/dL (calc) [facility] calculated Comment: DIAGNOSTICS Reference range: <100 [place] Desirable range <100 mg/dL for primary prevention; <70 mg/dL for patients with CHD or diabetic patients with > or=2 CHD risk factors. LDL-C is now calculated using the Elijah calculation, which is a validated novel method providing better accuracy than the Friedewald equation in the estimation of LDL-C. Donald SS et al. FLO. 2013;310(19): 7133-5033 (http://education.Ma-papeterie/faq/ASU846) Cholesterol/HDL 2.8 <5.0 (calc) [facility] ratio [facility] [place] Non-HDL 93 <130 mg/dL (calc) [facility] cholesterol Comment: DIAGNOSTICS For patients with diabetes [place] plus 1 major ASCVD risk factor, treating to a non-HDL-C goal of <100 mg/dL (LDL-C of <70 mg/dL) is considered a therapeutic option. Specimen Blood Narrative Performed At FASTING:NO [facility] FASTING: NO Resulting Agency Comment Performing Organization Information: Site ID: RGA Name: [facility] Address: [address] [place] [phone] Director: Latisha Toth Performing Organization Address City/State/Zipcode [place] [address] * Comprehensive metabolic panel (11/15/2018 12:32 PM CDT) Only the most recent of 2 results within the time period is included. Pathologist [facility] Glucose 162 (H) 65 - 139 mg/dL [facility] Comment: DIAGNOSTICS Non-fasting [place] reference interval BUN, whole 18 7 - 25 mg/dL [facility] blood [facility] [place] Creatinine 0.96 0.70 - 1.18 mg/dL [facility] Comment: DIAGNOSTICS For patients >49 years of age, [place] the reference limit for Creatinine is approximately 13% higher for people identified as -Honduran. EGFR Non-Afr. 76 > OR=60 [facility] [place] mL/min/1.73m2 [facility] EGFR 88 > OR=60 [facility] mL/min/1.73m2 [facility] BUN/creatinine NOT APPLICABLE 6 - 22 (calc) [facility] ratio [facility] [place] Sodium 140 135 - 146 mmol/L [facility] [place] Potassium 4.7 3.5 - 5.3 mmol/L [facility] [place] Chloride 109 98 - 110 mmol/L [facility] [place] CO2 24 20 - 32 mmol/L [facility] [place] Calcium 9.2 8.6 - 10.3 mg/dL [facility] Protein 6.8 6.1 - 8.1 g/dL [facility] [place] Albumin, S 4.3 3.6 - 5.1 g/dL [facility] [place] Globulin, total 2.5 1.9 - 3.7 g/dL [facility] (calc) [facility]NOSTICS [place] Albumin/globuli 1.7 1.0 - 2.5 (calc) [facility] n ratio [facility] Total bilirubin 0.6 0.2 - 1.2 mg/dL [facility] [place] Alkaline 56 40 - 115 U/L [facility] phosphatase [facility] AST 18 10 - 35 U/L [facility] [place] ALT 16 9 - 46 U/L [facility] [place] Specimen Blood Narrative Performed At FASTING:NO [facility] FASTING: NO Resulting Agency Comment Performing Organization Information: Site ID: [facility] Name: [facility] Address: [address] [place] [phone] Director: Latisha Toth Performing Organization Address City/State/Zipcode Phone Number [facility] [place] [address] [place] [address] * Anaerobic and aerobic culture (05/19/2018 4:25 PM CDT) Aerobic and SEE NOTE [facility] anaerobic Comment: DIAGNOSTICS culture w/gram CULTURE, ANAEROBIC [place] stain BACTERIA W/GRAM STAIN MICRO NUMBER:[id number] TEST STATUS: FINAL SPECIMEN SOURCE: LOWER BACK SPECIMEN QUALITY:ADEQUATE GRAM STAIN:No epithelial cells seen No white blood cells seen Rare Gram positive cocci RESULT: No anaerobes isolated. Aerobic culture SEE NOTE (A) [facility] isolate Comment: DIAGNOSTICS CULTURE, AEROBIC BACTERIA [place] MICRO NUMBER:[id number] TEST STATUS: FINAL SPECIMEN SOURCE: LOWER BACK [...] Performing Organization Information: Site ID: [facility] Name: [facility] Address: [address] [place] [phone] Director: Latisha Toth Performing Organization Address City/[facility] Phone Number [facility] [address] [address] * Fluzone High-Dose PF (0.5mL Syringe) (05/11/2018 11:59 AM CDT) * Creatine kinase, total (CPK) (05/11/2018 10:29 AM CDT) Creatine kinase 132 44 - 196 U/L [facility] [place] Specimen Narrative Performed At FASTING:YES [facility] FASTING: YES Resulting Agency Comment Performing Organization Information: Site ID: A Name: [facility] Address: [address] [place] [phone] Director: Latisha Toth Performing Organization Address City/[facility] Phone Number [facility] [address] [address] after 03/08/2018 Insurance Type Payer Benefit Subscriber ID Effective Phone Address Plan / Dates Group HMO TEXANPLUS TEXANPLUS xxxxxxxxx 2018-Jolanta bateman Advance Directives Patient has advance care planning documents on file. For more information, ash michaels contact: Jordan Ventura [address] [place] [address]
[2019-03-09] MEDS: ACETAMINOPHEN/CODEINE 300MG - 30MG TAB PO PRN ×2 (16:10→20:10)
[2019-03-09 16:16] VITALS: BP 152/68
--- NOTE | 2019-03-09 16:38 | NUR ---
Patient received from OR, s/p TURP. Alert and oriented, family at bedside. c/o feeling pain and pressure whenever a clot passes. 24 Frisian Headley catheter not to traction. Nurse was informed by OR that Headley is not attached/locked to patient's thigh due to catheter's proximity to tip of penis. Urine clear and ramirez red. Irrigating with sodium chloride. Bed locked and in low position, call castro within reach. Patient instructed to call for assistance. Will continue to monitor patient status.
[2019-03-09 16:55] LABS: ANION GAP 16.2 mmol/L (8-16); BLOOD UREA NITROGEN 16 mg/dL (7-26); BUN/CREATININE RATIO 17 (6-25); CALCIUM 9.1 mg/dL (8.4-10.2); CARBON DIOXIDE 22 mmol/L (22-29); CHLORIDE 105 mmol/L (98-107); CREATININE, SERUM 0.96 mg/dL (0.72-1.25); EST GLOMERULAR FILTRATION RATE > 60 ML/MIN (60-); GLUCOSE 110 mg/dL (74-118); POTASSIUM 4.2 mmol/L (3.5-5.1); SODIUM 139 mmol/L (136-145)
[2019-03-09 17:02] VITALS: BP 152/68
[2019-03-09 17:06] VITALS: BP 152/68
[2019-03-09 17:16] LABS: BASOPHILS % 0.2 % (0.0-1.0); EOSINOPHILS # (AUTO) 0.1 (0.0-0.4); EOSINOPHILS % 1.1 % (0.0-6.0); HEMATOCRIT 39.7 % (38.2-49.6); HEMOGLOBIN 12.4 g/dL (14.0-18.0); LYMPHOCYTES # (AUTO) 1.3 (1.0-3.2); LYMPHOCYTES % 11.5 % (18.0-39.1); MEAN CORPUSCULAR HEMOGLOBIN 26.2 pg (28-32); MEAN CORPUSCULAR HGB CONC 31.2 g/dL (31-35); MEAN CORPUSCULAR VOLUME 83.9 fL (81-99); MONOCYTES # (AUTO) 0.8 (0.2-0.8); MONOCYTES % 7.1 % (4.4-11.3); NEUTROPHILS # (AUTO) 9.2 (2.1-6.9); NEUTROPHILS % 79.8 % (38.7-80.0); PLATELET COUNT 164 x10e3/uL (140-360); RED BLOOD COUNT 4.73 x10e6/uL (4.3-5.7); RED CELL DISTRIBUTION WIDTH 16.5 % (11.7-14.4)
[2019-03-09] MEDS: PHENAZOPYRIDINE HCL 100 MG TAB PO SCH (17:29)
[2019-03-09] MEDS: DOCUSATE SODIUM 100 MG CAP PO SCH (17:29)
[2019-03-09] MEDS ORDERED: METOCLOPRAMIDE HCL 10 MG/2ML VIAL ONE (17:32)
[2019-03-09] MEDS ORDERED: ONDANSETRON HCL INJ 2MG/ML 2ML 2 MG/ML VIAL ONE (17:32)
[2019-03-09] MEDS ORDERED: PROPOFOL IV EMULSION 10 MG/ML 20 ML VIAL ONE (17:32)
[2019-03-09] MEDS ORDERED: DESFLURANE 240 ML BTL INH ONE (17:32)
[2019-03-09] MEDS ORDERED: LIDOCAINE HCL 2% LOCAL INJ 5 ML SDV VIAL INJ ONE (17:32)
[2019-03-09] MEDS ORDERED: ACETAMINOPHEN 1000 MG/100 ML IV ONE (17:32)
[2019-03-09] MEDS: SOD CHL 0.45%/POT CHL 20MEQ 1,000 ML IV SCH ×2 (17:37→21:16)
--- NOTE | 2019-03-09 18:55 | NUR ---
Handoff report given. Patient has no c/o pain, no signs of distress. at bedside.
--- NOTE | 2019-03-09 19:02 | NUR ---
BESIDE SHIFT REPORT PERFORMED, RECEIVED PT LAYING SEMI FOWLERS IN BED, AAOX3, RR EVEN AND NON-LABORED, O2 BY NC AT 0.5L. NO S/SX OF DISTRESS NOTED. LEFT PT LAYING SEMI FOWLERS IN BED, BED IN LOW LOCKED POSITION, SIDE RAILS UPX2, CALL LIGHT AND PHONE WITHIN REACH.
[2019-03-09 20:00] VITALS: BP 143/63
[2019-03-09] MEDS ORDERED: LANTUS 3ML100 UNITS/ SC (20:17)
--- NOTE | 2019-03-09 20:18 | NUR ---
CALL PLACED FOR MD MASCORRO, CALL DID NOT RING WENT STRAIGHT TO VOICEMAIL.
--- NOTE | 2019-03-09 20:36 | NUR ---
SPOKE WITH MD Monique KUMARI CONCERNING HOME MEDICATIONS. NEW ORDERS RECEIVED.
[2019-03-09] MEDS ORDERED: INSULIN GLARGINE SC SCH (20:45)
[2019-03-09 20:56] VITALS: BP 143/63
[2019-03-09] MEDS ORDERED: SIMVASTATIN 40 MG TAB PO SCH (21:00)
[2019-03-09] MEDS: SIMVASTATIN 20 MG TAB PO SCH (21:00)
[2019-03-09] MEDS ORDERED: IBUPROFEN 400 MG TAB PO ONE (21:30)
[2019-03-09] MEDS: INSULIN GLARGINE 100 UNITS/ML VIAL SQ SCH (21:42)
[2019-03-10] VITALS (7 sets, daily range): BP systolic 125–152; BP diastolic 62–70
[2019-03-10] MEDS: SOD CHL 0.45%/POT CHL 20MEQ 1,000 ML IV SCH (01:25)
[2019-03-10 05:44] LABS: BASOPHILS % 0.4 % (0.0-1.0); EOSINOPHILS # (AUTO) 0.2 (0.0-0.4); EOSINOPHILS % 2.7 % (0.0-6.0); HEMATOCRIT 40.5 % (38.2-49.6); HEMOGLOBIN 12.1 g/dL (14.0-18.0); LYMPHOCYTES # (AUTO) 1.4 (1.0-3.2); MEAN CORPUSCULAR HEMOGLOBIN 25.4 pg (28-32); MEAN CORPUSCULAR HGB CONC 29.9 g/dL (31-35); MEAN CORPUSCULAR VOLUME 84.9 fL (81-99); MONOCYTES # (AUTO) 0.9 (0.2-0.8); MONOCYTES % 10.3 % (4.4-11.3); NEUTROPHILS # (AUTO) 5.8 (2.1-6.9); NEUTROPHILS % 69.4 % (38.7-80.0); PLATELET COUNT 162 x10e3/uL (140-360); RED BLOOD COUNT 4.77 x10e6/uL (4.3-5.7); RED CELL DISTRIBUTION WIDTH 16.5 % (11.7-14.4)
[2019-03-10 06:04] LABS: ANION GAP 14.4 mmol/L (8-16); BLOOD UREA NITROGEN 18 mg/dL (7-26); BUN/CREATININE RATIO 17 (6-25); CALCIUM 8.6 mg/dL (8.4-10.2); CARBON DIOXIDE 23 mmol/L (22-29); CHLORIDE 104 mmol/L (98-107); CREATININE, SERUM 1.07 mg/dL (0.72-1.25); EST GLOMERULAR FILTRATION RATE > 60 ML/MIN (60-); GLUCOSE 133 mg/dL (74-118); POTASSIUM 4.4 mmol/L (3.5-5.1); SODIUM 137 mmol/L (136-145)
[2019-03-10] MEDS ORDERED: GLYBURIDE PO SCH (07:30)
[2019-03-10] MEDS ORDERED: METFORMIN HCL PO SCH (07:30)
[2019-03-10] MEDS: FINASTERIDE 5 MG TAB PO SCH (08:27)
[2019-03-10] MEDS: PHENAZOPYRIDINE HCL 100 MG TAB PO SCH ×3 (08:27→17:42)
[2019-03-10] MEDS: DOCUSATE SODIUM 100 MG CAP PO SCH ×2 (08:27→17:42)
[2019-03-10] MEDS: LOSARTAN POTASSIUM 100 MG TAB PO SCH (08:27)
[2019-03-10] MEDS: AMLODIPINE BESYLATE 10 MG TAB PO SCH (08:27)
[2019-03-10] MEDS: GLYBURIDE 5 MG TAB PO SCH ×2 (08:27→17:42)
[2019-03-10] MEDS: METFORMIN HCL 500 MG TAB PO SCH ×2 (08:27→17:42)
[2019-03-10] MEDS ORDERED: DEXTROSE 50% SYRINGE 50 ML IV PRN (09:45)
[2019-03-10] MEDS ORDERED: SODIUM CHLORIDE 0.9% 250ML 250 ML ONE (11:49)
[2019-03-10] MEDS: INSULIN LISPRO 100 UNIT/1 ML 3ML VIAL SQ SCH ×3 (12:21→20:40)
[2019-03-10] MEDS: CEFTRIAXONE SOD 1 GM/NS 50 ML 50 ML IV SCH (12:22)
--- NOTE | 2019-03-10 16:06 | History and Physical ---
CHIEF COMPLAINT: Status post TURP. HISTORY OF PRESENT ILLNESS: The patient is a pleasant 79-year-old male with multiple chronic medical problems, status post TURP procedure. The patient is stable. Baseline diabetes and hypertension. The patient is comfortable at this time. No chest pain. No shortness of breath. No gross hematuria due to Headley catheter. The patient has no postop complications. PAST MEDICAL HISTORY: Hypertension, diabetes, osteoarthritis. PAST SURGICAL HISTORY: Status post TURP procedures and cataract surgery. SOCIAL HISTORY: The patient does not smoke or use alcohol. No regular drugs. ALLERGIES: NO KNOWN ALLERGIES. HOME MEDICATIONS: List is reviewed. REVIEW OF SYSTEMS: Noncontributory. PHYSICAL EXAMINATION: VITAL SIGNS: Temperature is 98, blood pressure 125/67, pulse rate is 75, respirations 18. GENERAL: The patient is not in acute distress. HEENT: Normocephalic, atraumatic. Pupils reactive. Anicteric. NECK: Supple grossly. PULMONARY: Clear. CARDIOVASCULAR: Regular rate and rhythm. ABDOMEN: Soft. Headley catheter in place. EXTREMITIES: No cyanosis or edema. NEUROLOGIC: No gross focal deficit. LABORATORY DATA: Sodium is 137, potassium is 4.4, chloride 104, bicarb 23, BUN is 18, creatinine 1.07, glucose is 133. WBC is 8.4, hemoglobin 12, hematocrit 40.5, platelets 162. IMPRESSION: 1. Status post transurethral resection of the prostate procedure. 2. Enlarged prostate with urinary retention. 3. Multiple chronic baseline problems including hypertension, diabetes type 2, and dyslipidemia. PLAN: Continue with home medication. No anticoagulant therapy. Continue with the urinary bladder irrigation. Discontinue IV fluids. Check lab work. Insulin sliding scale coverage. Incentive spirometry and chest ICD while lying in bed. MD SAMEERA Rios/MODL /[id number]
[2019-03-10] MEDS ORDERED: INSULIN GLARGINE 100 UNITS/ML VIAL SQ SCH (16:30)
[2019-03-10] MEDS ORDERED: TAMSULOSIN HCL 0.4 MG CAP PO SCH (16:30)
[2019-03-10] MEDS: INSULIN GLARGINE 100 UNITS/ML VIAL SQ SCH (17:43)
--- NOTE | 2019-03-10 19:00 | NUR ---
Report given to oncoming nurse of patient's status. No s/s of acute distress noted.
--- NOTE | 2019-03-10 19:27 | NUR ---
BESIDE SHIFT REPORT PERFORMED, RECEIVED PT SITTING IN RECLINER AAOX3, RR EVEN AND NON-LABORED, ON ROOM AIR. NO S/SX OF DISTRESS NOTED. PT RECEIVING CBI, CLEAR YELLOW URINE NOTED. LEFT PT LAYING SEMI FOWLERS IN BED, BED IN LOW LOCKED POSITION, SIDE RAILS UPX2, CALL LIGHT AND PHONE WITHIN REACH.
[2019-03-10] MEDS: SIMVASTATIN 20 MG TAB PO SCH (20:40)
[2019-03-11] VITALS: BP 125/62
[2019-03-11 04:00] VITALS: BP 117/58
[2019-03-11 05:55] LABS: BASOPHILS % 0.2 % (0.0-1.0); EOSINOPHILS # (AUTO) 0.1 (0.0-0.4); HEMATOCRIT 38.8 % (38.2-49.6); HEMOGLOBIN 12.1 g/dL (14.0-18.0); LYMPHOCYTES # (AUTO) 1.2 (1.0-3.2); LYMPHOCYTES % 11.4 % (18.0-39.1); MEAN CORPUSCULAR HEMOGLOBIN 25.6 pg (28-32); MEAN CORPUSCULAR HGB CONC 31.2 g/dL (31-35); MONOCYTES # (AUTO) 1.1 (0.2-0.8); MONOCYTES % 10.9 % (4.4-11.3); NEUTROPHILS # (AUTO) 7.7 (2.1-6.9); NEUTROPHILS % 76.1 % (38.7-80.0); PLATELET COUNT 164 x10e3/uL (140-360); RED BLOOD COUNT 4.73 x10e6/uL (4.3-5.7); RED CELL DISTRIBUTION WIDTH 16.7 % (11.7-14.4)
[2019-03-11 06:15] LABS: ANION GAP 14.5 mmol/L (8-16); CALCIUM 9.1 mg/dL (8.4-10.2); CREATININE, SERUM 1.48 mg/dL (0.72-1.25); POTASSIUM 4.5 mmol/L (3.5-5.1)
--- NOTE | 2019-03-11 07:18 | NUR ---
Rcvd patient in report this am. patient is asleep in recliner at this time. No s/s of distress noted.
[2019-03-11 08:00] VITALS: BP 119/62
[2019-03-11] MEDS: METFORMIN HCL 500 MG TAB PO SCH (08:35)
[2019-03-11] MEDS: GLYBURIDE 5 MG TAB PO SCH (08:35)
[2019-03-11] MEDS: DOCUSATE SODIUM 100 MG CAP PO SCH (08:36)
[2019-03-11] MEDS: INSULIN LISPRO 100 UNIT/1 ML 3ML VIAL SQ SCH ×2 (08:36→12:08)
[2019-03-11] MEDS: FINASTERIDE 5 MG TAB PO SCH (08:37)
[2019-03-11] MEDS: AMLODIPINE BESYLATE 10 MG TAB PO SCH (08:37)
[2019-03-11] MEDS: PHENAZOPYRIDINE HCL 100 MG TAB PO SCH ×2 (08:37→12:13)
[2019-03-11] MEDS: LOSARTAN POTASSIUM 100 MG TAB PO SCH (08:37)
[2019-03-11] MEDS ORDERED: ONDANSETRON HCL 4 MG ORAL DISINTEGRATING TAB PO PRN (08:45)
[2019-03-11 08:55] VITALS: BP 119/62
[2019-03-11] MEDS ORDERED: ACETAMINOPHEN 325 MG TAB PO PRN (09:45)
--- NOTE | 2019-03-11 10:19 | NUR ---
EDUCATED ABOUT IMM, SIGNED, FILED IN CHART, WITH COPY LEFT WITH FAMILY AT BEDSIDE.
[2019-03-11] MEDS ORDERED: SODIUM CHLORIDE 0.9% 500ML 500 ML IV ONE (11:00)
--- NOTE | 2019-03-11 11:25 | NUR ---
Headley catheter removed. Catheter intact. Denies discomfort.
[2019-03-11 12:00] VITALS: BP 133/65
--- NOTE | 2019-03-11 13:00 | NUR ---
Patient voided at this time. Serial urines in progress.
[2019-03-11 13:59] LABS: ANION GAP 15.4 mmol/L (8-16); CALCIUM 8.6 mg/dL (8.4-10.2); CREATININE, SERUM 1.32 mg/dL (0.72-1.25); POTASSIUM 4.4 mmol/L (3.5-5.1)
[2019-03-11] MEDS: CEFTRIAXONE SOD 1 GM/NS 50 ML 50 ML IV SCH (14:38)
[2019-03-11] MEDS ORDERED: LEVAQUIN500 MG PO (15:10)
[2019-03-11] MEDS ORDERED: TYLENOL WITH C1 EACH PO (15:10)
[2019-03-11] MEDS ORDERED: COLACE100 MG PO ×2 (15:11→15:12)
--- NOTE | 2019-03-11 15:33 | NUR ---
20 g peripheral IV catheter removed. Catheter intact. Denies discomfort. No bleeding noted.
--- NOTE | 2019-03-11 15:53 | NUR ---
Patient discharged from facility to home. patient assisted out of facility via staff. Reviewed discharge paperwork, follow up appts and RX's.
--- NOTE | 2019-05-02 05:29 | Operative Report ---
DATE OF PROCEDURE: 03/09/2019 SURGEON: Navi Hopkins MD PREOPERATIVE DIAGNOSES: 1. Obstructive benign prostatic hypertrophy. 2. Urinary tract infections. 3. Hematuria. POSTOPERATIVE DIAGNOSES: 1. Obstructive benign prostatic hypertrophy. 2. Urinary tract infections. 3. Hematuria. OPERATION PERFORMED: 1. Cystourethroscopy with bilateral ureteral catheterization and retrograde ureteropyelography (separate procedure performed for urinary tract infections and hematuria). 2. Interpretation of retrograde ureteropyelography. 3. Supervision of fluoroscopy, no radiologist present. 4. Cystourethroscopy with transurethral resection of the prostate utilizing GreenLight laser. ANESTHESIA: General. COMPLICATIONS: None. CLINICAL SUMMARY: Rey Hair is a 79-year-old man with the above preoperative diagnoses. He is brought for the above procedures. He is aware of the risks of bleeding, infection, injury to adjacent structures, incontinence, impotence, retrograde ejaculation, need for additional procedures and he elected to proceed. OPERATIVE PROCEDURE IN DETAIL: Informed consent was verified. Rey Hair was properly identified and taken to the operating room and placed on the cystoscopy table in supine position. Anesthesia was uneventfully begun. The patient was then carefully gently repositioned in a dorsal lithotomy position. All pressure points well padded. His genitalia were prepared and draped in usual sterile fashion. The patient is status post circumcision. He does have some balanoposthitis. He may need circumcision revision. His prostate volume previously was noted to be over 60 mL by ultrasound. The cystoscope sheath with the visual obturator in place was atraumatically inserted into the patient's urethra and was guided down to the unremarkable urethra through the prostate bed, which was significant for visually obstructing bilobar BPH with kissing lateral lobes and a long prostatic urethra. We entered the patient's bladder where panendoscopy revealed grade 4 trabeculations with small diverticular formation. No large diverticula were noted. There were no suspicious lesions. There were no tumors. There were no stones. An 8-[place] catheter was used to cannulate each ureter and retrograde ureteropyelograms were performed. Interpretation of retrograde ureteropyelography contrast was instilled in retrograde fashion bilaterally. There were no tumors. There were no stones. There were no diverticula of the upper tract. Unobstructed drainage was observed fluoroscopically bilaterally, J hooking was noted. The cystoscope was withdrawn. The resectoscope sheath was atraumatically placed. Transurethral resection of the prostate was then carried out from the bladder neck tube, but never passed the verumontanum and down the surgical capsule. Pinpoint electrocautery was utilized to achieve hemostasis. The resectoscope was then withdrawn. The continuous-flow catheter was then placed. It was irrigated to and fro to ensure it worked properly. Belladonna/opium suppository was placed revealing a larger than 50 g prostate, smooth, nonfluctuant without any nodules. The patient was then uneventfully reversed from anesthesia and taken to recovery room in stable condition. There were no complications to the procedure. He tolerated the procedure well. Explicit postop instructions were given. We will proceed with routine postoperative care and ongoing urological followup. MD DOREEN Roberts/KENNY /[id number]
== END 2019-03-11 15:47 | disposition home or self-care (01) | DRG 713 ==
LOC: OR 09:11 → PACU V 13:18 → MED/SURG 15:32
PROVIDERS: ADMIT Internal Medicine; ATTEND Internal Medicine
PROC: 0VB08ZZ Excision of Prostate, Via Natural or Artificial Opening Endoscopic (ICD-10-PCS; principal; 2019-03-09 13:05)
PROC: 0T788ZZ Dilation of Bilateral Ureters, Via Natural or Artificial Opening Endoscopic (ICD-10-PCS; 2019-03-09 13:05)
PROC: BT141ZZ Fluoroscopy of Kidneys, Ureters and Bladder using Low Osmolar Contrast (ICD-10-PCS; 2019-03-09 13:05)
DX: N40.1 Benign prostatic hyperplasia with lower urinary tract symptoms (principal); N13.8 Other obstructive and reflux uropathy; Q61.02 Congenital multiple renal cysts; N39.0 Urinary tract infection, site not specified; I10 Essential (primary) hypertension; E78.5 Hyperlipidemia, unspecified; E11.9 Type 2 diabetes mellitus without complications; Z86.718 Personal history of other venous thrombosis and embolism; Z79.01 Long term (current) use of anticoagulants; N32.3 Diverticulum of bladder; M19.90 Unspecified osteoarthritis, unspecified site; R35.1 Nocturia; R39.16 Straining to void; R39.15 Urgency of urination
CPT/HCPCS: 36415; 71046; 74420; 80048; 82948; 83735; 85025; 93005; J0696; J1580; J1815; J2001; J2250; J2405; J2765; J3010; J7040; J7050

== ENCOUNTER → 2020-08-01 | Outpatient (CLI) | payer MEDICARE, OTHER ==
[~2020-08-01] MED LIST changes: +COLACE100 MG PO; +COVID-19 VACC, MRNA(MODERNA)/PF 100 MCG/0.5 ML VIAL IM ONE; +LANTUS 3ML100 UNITS/ SC; +LEVAQUIN500 MG PO; +TYLENOL WITH C1 EACH PO
== END ==
LOC: VACCPMC 19:00
DX: Z23 Encounter for immunization (principal); Z20.828 Contact with and (suspected) exposure to other viral communicable diseases

== ENCOUNTER → 2020-09-03 | Outpatient (CLI) | payer OTHER | LOC: VACCPMC 09:53 | DX: Z23 Encounter for immunization (principal); Z20.822 Contact with and (suspected) exposure to COVID-19 ==